=== PATIENT | female | born 1940 | race Caucasian/White ===

== ENCOUNTER 2019-11-05 15:20 | Observation (INO) | payer MEDICARE, SELFPAY ==
[2019-11-05] VITALS (10 sets, daily range): BP systolic 148–173; BP diastolic 45–78; PULSE 77–107; RESP 7–40; TEMP 36.2–36.8; O2SAT 92–100; BMI 26.9
--- NOTE | ~2019-11-05 | CT_ITS ---
EXAMINATION: CTA neck DATE: 11/07/2019 10:12 INDICATION: Carotid stenosis. TECHNIQUE: Computed tomographic angiography (CTA) of the neck was performed with 100 mL Omnipaque-350 intravenous contrast. Automated exposure control and iterative reconstruction technique were employe d. The dose-length product was 504.98 mGy-cm. Maximum intensity projection 3D-reconstructions were cr eated by the technologist on a separate workstation. COMPARISON: Ultrasound 11/06/2019 FINDINGS: There is mild scarring at the lung apices. There are no pathologically enlarged lymph nodes . There is no significant stenosis of the vertebral arteries, which are codominant. There is plaque i n the proximal internal carotid arteries and carotid bifurcations. There is 62% stenosis of the proxi mal right internal carotid artery relative to normal distal artery lumen diameter (NASCET criteria). There is 60% stenosis of the proximal left internal carotid artery relative to normal distal artery l umen diameter. There is severe cervical spondylosis. There are bilateral mastoid effusions. IMPRESSION: 1. 62% stenosis of the proximal right internal carotid artery relative to normal distal artery lumen diameter (NASCET criteria). 2. 60% stenosis of the proximal left internal carotid artery relative to normal distal artery lumen d iameter. Reviewed, dictated and finalized at location A. ENTIONAL MACHINIST IMPRESSION: 1. 62% stenosis of the proximal right internal carotid artery relative to goran l distal artery lumen diameter (NASCET criteria). 2. 60% stenosis of the proximal left internal carotid artery relative to normal distal artery lumen diameter.
--- NOTE | ~2019-11-05 | CT_ITS ---
EXAMINATION: CT brain wo con EXAM DATE: 11/05/2019 16:28 INDICATION: Syncope. TECHNIQUE: Spiral CT of the head was performed without contrast. Axial, coronal and sagittal images were reviewed. The dose-length product (DLP) for this examination was 605.33 mGy-cm. The exposure w as tailored according to patient size, and iterative reconstruction (ASIR) was used as additional dos e reduction technique. Comparison is made to prior examination from 05/18/2019. FINDINGS: There is no acute intraparenchymal hemorrhage. No evidence of intraparenchymal brain mass lesion. No evidence of acute infarction. Please note that initial head CT has limited sensitivity f or small or acute infarctions. There is mild to moderate periventricular and subcortical hypodensity, nonspecific but probably related to small vessel ischemic disease. There is mild to moderate promi nence of the sulci and ventricles related to cerebral atrophy. There is intracranial carotid arteri osclerosis. There are no extra-axial collections. There is no mass effect or midline shift. The or bits are unremarkable. Soft tissue is unremarkable. The visualized sinuses and mastoid air cells ar e well aerated. IMPRESSION: 1. No acute intracranial findings. 2. Chronic age related findings. Reviewed, dictated and finalized at location B. ER FIRST CLASS
--- NOTE | ~2019-11-05 | XR_ITS ---
EXAMINATION: XR chest 1V portable INDICATION: Chest pain TECHNIQUE: Portable AP chest at 1630 hours COMPARISON: 05/18/2019 FINDINGS: The lungs are free of acute opacities. There is no pleural effusion or pneumothorax. The ca rdiomediastinal silhouette is normal. The visualized bones and soft tissues are unremarkable. IMPRESSION: 1. No acute cardiopulmonary abnormality. Reviewed, dictated and finalized at location A. ALL CONTRACTOR
--- NOTE | ~2019-11-05 | US_ITS ---
EXAMINATION: US carotid duplex BI DATE: 11/06/2019 12:21 INDICATION: Syncope TECHNIQUE: Grayscale, color Doppler, and pulsed Doppler images of the cervical carotid arteries were obtained. The degree of vessel stenosis is placed in one of the following categories: normal, <50%, 5 0-69%, >=70% but less than near-occlusion, near-occlusion, or total occlusion. Note that percent sten osis relative to normal distal artery lumen diameter is indirectly measured from velocity measurement s as described by Haroldo, et al. Radiology 2003; 229:340-346. COMPARISON: None. FINDINGS: RIGHT: The right common carotid artery (CCA) peak systolic velocity (PSV) is 124 cm/s. The right internal ca rotid artery (ICA) PSV is 205 cm/s. The right ICA end-diastolic velocity (EDV) is 15 cm/s. The right ICA/CCA PSV ratio is 1.7. Grayscale and color Doppler images yield an estimate of 50-69% diameter red uction from plaque in the ICA. The external carotid artery (ECA) PSV is 184 cm/s. There is antegrade flow in the right vertebral artery. LEFT: The left CCA PSV is 72 cm/s. The left ICA PSV is 321 cm/s. The left ICA EDV is 44 cm/s. The left ICA/ CCA PSV ratio is 4.5. Grayscale and color Doppler images yield an estimate of >=70% (but less than ne ar occlusion) diameter reduction from irregular friable appearing plaque in the proximal most ICA. Th e ECA PSV is 123 cm/s. There is antegrade flow in the left vertebral artery. IMPRESSION: 1. 50-69% stenosis in the right internal carotid artery. 2. >=70% (but less than near occlusion) stenosis in the left internal carotid artery. Reviewed, dictated and finalized at location A. HELPER PRESERVES IMPRESSION: 1. 50-69% stenosis in the right internal carotid artery. 2. >=70% (but less than near occlusion) stenosis in the left internal carotid a rtery.
--- NOTE | 2019-11-05 16:12 | ECG_ITS ---
Measurements Intervals [place] Rate: 71 P: 47 VA: 204 QRS: 11 QRSD: 72 T: 42 QT: 375 QTc: 410 Interpretive Statements SINUS RHYTHM BORDERLINE AV CONDUCTION DELAY LOW QRS VOLTAGE IN PRECORDIAL LEADS BORDERLINE ECG Electronically Signed On 11-05-2019 20:38:22 TIE MILL OPERATOR by Ulysses Canales D.O.
--- NOTE | 2019-11-05 16:13 | ED.SYNCOPE ---
HPI - Syncope General Chief Complaint: Syncope Stated Complaint: NEAR SYNCOPE Time Seen by Provider: 11/05/19 16:08 Source: patient, family and RN notes reviewed Mode of arrival: ambulatory Limitations: no limitations History of Present Illness HPI narrative: Pt is a 79 y/o female who presents to the ED with c/o a syncopal episode which occurred around 1430 this afternoon. Pt's son states he was getting the pt into the shower and the pt experienced the syncopal episode while in the shower. He states the pt had to be helped out of the shower because she was unconscious. He reports performing CPR for approximately 1 minute before the pt gained consciousness again. He denies checking for a pulse before he started CPR. The pt reports mild diffuse chest pain due to the chest compressions from CPR and increased fatigue, but denies a headache, nausea, vomiting, or ABD pain. She denies having a similar episode to this in the past. However, she was at the hospital last week and was admitted, but is unsure to the reason why. MD complaint: loss of consciousness Onset (ago): hour(s) (1430 this afternoon) Duration of episode: 1 -: minutes(s) Description of event: CPR performed Prodromal symptoms: none Witnessed: Yes - by Bystander (by family) Context: other (in the shower) Injuries sustained associated with event: none Current symptoms: chest pain (due to chest compressions) and other (increased fatigue) Related Data Home Medications Medication Instructions Recorded Confirmed amlodipine 5 mg PO DAILY 11/05/19 11/05/19 atorvastatin 40 mg PO DAILY 11/05/19 11/05/19 carbamazepine 200 mg PO Q12H 11/05/19 11/05/19 clopidogrel 75 mg PO DAILY 11/05/19 11/05/19 hydrocodone-acetaminophen [[place]] 1 tablet PO Q6H PRN 11/05/19 11/05/19 hydroxyzine HCl 25 mg PO BID PRN 11/05/19 11/05/19 lisinopril 20 mg PO DAILY 11/05/19 11/05/19 memantine 10 mg PO BID 11/05/19 11/05/19 pantoprazole 40 mg PO DAILY 11/05/19 11/05/19 Allergies Allergy/AdvReac Type Severity Reaction Status Date / Time Penicillins Allergy Intermediate ITCHING, Verified 11/05/19 15:50 BURNING BEHIND EARS Review of Systems Constitutional: Constitutional: Reports fatigue (increased) and Denies headache(s) ENT: Denies headache(s) Cardiovascular: Cardiovascular: Reports chest pain (mild diffuse chest pain due to chest compressions) Gastrointestinal: Gastrointestinal: Denies abdominal pain, Denies nausea and Denies vomiting Neurologic: Reports syncope (syncopal episode that lasted approximately 1 minute) and Denies headache(s) [facility] Past Medical History Medical History (Updated 11/05/19 @ 19:27 by Adriana Reid MD) Anxiety Arthritis CAD (coronary atherosclerotic disease) Colon tumor Depression Diabetes Hypercholesterolemia Hypertension Osteoporosis Pneumonia Rectal polyp Shingles Surgical History Surgical History (Updated 11/05/19 @ 16:21 by Kassy Tamayo) H/O Spinal surgery H/O vascular surgery History of colon surgery Social History Social History (Updated 11/05/19 @ 16:21 by Kassy Tamayo) Smoking status: Former smoker Alcohol intake: never Substance use: never Substance use type: does not use Gender identity (if verbalized by the patient): Female Spiritual care concerns: No Agree to blood products: Yes Exam Const: General: no acute distress and well developed Orientation/consciousness: oriented to person, oriented to place, oriented to time and patient oriented x3 HENMT: Head: normocephalic Ears: external ears normal General nose exam: Normal external nose present Eyes: General: appearance normal, both eyes and all related structures Conjunctivae: conjunctivae normal Neck: Neck: normal visual inspection and full ROM Chest: Chest palpation & inspection: normal inspection of the chest and no tenderness Resp: Effort & Inspection: normal respiratory effort Auscultation: clear to auscultation bilaterally Cardio: Rate:
[2019-11-05] MEDS: SODIUM CHLORIDE 0.9% IV 1,000 ML 999 ML IV CONT (16:36)
[2019-11-05 17:00] LABS: Basophils Absolute Auto 0.1 K/mm3 (0.0-0.1); Basophils Percent Auto 0.3 % (0.2-1.2); Eosinophils Absolute Auto 0.1 K/mm3 (0-0.3); Eosinophils Percent Auto 0.5 % (0-4.4); Hematocrit 39.2 % (37.0-47.0); Hemoglobin 12.8 g/dL (12.0-15.0); Immature Granulocyte Absolute 0.19 K/mm3 (0.00-0.031); Immature Granulocyte Percent A 1.1 % (0-0.5); Lymphocytes Absolute Auto 1.32 K/mm3 (0.9-3.2); Lymphocytes Percent Auto 7.8 % (18.3-44.2); Mean Corpuscular HGB Conc 32.7 g/dl (32-36); Mean Corpuscular Hemoglobin 30.9 pg (26-34); Mean Corpuscular Volume 94.7 fl (80-100); Monocytes Absolute Auto 0.9 K/mm3 (0.1-0.6); Monocytes Percent Auto 5.4 % (2.6-8.5); Neutrophils Absolute Auto 14.4 K/mm3 (1.3-6.7); Neutrophils Percent Auto 84.9 % (45.5-73.1); Platelet Count Result 254 k/mm3 (150-375); Red Blood Count 4.14 M/mm3 (4.2-5.4); Red Cell Distribution Width 12.9 % (11.5-14.5)
[2019-11-05 17:14] LABS: Alanine Aminotransferase 24 U/L (4-35); Albumin Level 3.6 g/dL (3.5-5.1); Alkaline Phosphatase 94 U/L (38-126); Aspartate Amino Transferase 29 U/L (14-36); Bilirubin,Total 0.5 mg/dL (0.2-1.3); Blood Urea Nitrogen 12 mg/dL (7-17); Calcium 8.7 mg/dL (8.4-10.2); Carbon Dioxide 21 mmol/L (22-30); Chloride 100 mmol/L (98-107); Estimated CRCL calculation 95 ml/min; Estimated Glomerular Filt Rate > 60; Glucose 118 mg/dL (65-105); Sodium 135 mmol/L (137-145)
[2019-11-05 17:55] LABS: Troponin I < 0.012 ng/mL (0.000-0.034)
[2019-11-05 18:53] LABS: Add Urine Microscopic? YES; Appearance Urine Clear (Clear); Bilirubin Urine Negative (Negative); Blood Urine Negative (Negative); Color Urine Yellow (Yellow); Glucose Urine UA Negative (Negative); Ketones Urine Negative (Negative); Leukocyte Esterase Ur Negative LEU/UL (Negative); Mucus Urine Few /lpf; Nitrate Urine Negative (Negative); Protein Urine 1+ mg/dL (Negative); Specific Grav Ur 1.026 (1.001-1.035); Squamous Epithelial Cell Urine Rare /hpf (Few); WBC Urine 0-3 /hpf
--- NOTE | 2019-11-05 19:28 | ADMGEN ---
This patient, Carolin Pedersen, was admitted to IMU Room 200-01. Patient/family oriented to hospital policies and general routines including ID bracelet, bed and alarms, visiting hours, pain management, procedures, bathroom and other care routines, personal items, smoking policy, room service/diet, and visiting hours. Valuables list has been completed. Information on how to activate the Rapid Response Team has been discussed. Patient/Family are encouraged to report perceived risks to care and to ask questions if they do not understand what they are told or what they should do.
[2019-11-05 21:04] LABS: Troponin I < 0.012 ng/mL (0.000-0.034)
[2019-11-05 23:50] LABS: Troponin I < 0.012 ng/mL (0.000-0.034)
[2019-11-06] VITALS (15 sets, daily range): BP systolic 149–183; BP diastolic 50–97; PULSE 64–98; RESP 18–22; TEMP 36.5–36.9; O2SAT 94–100
--- NOTE | 2019-11-06 | ECHO_ITS ---
Patient Info Name: Carolin Pedersen Age: 79 years : 1940 Gender: Female Ht: 64 in Wt: 156 lbs BSA: 1.80 m2 HR: 75 bpm BP: 183 / 86 mmHg Heart Rhythm: Sinus Rhythm Technical Quality: Fair Exam Date: 11/06/2019 1:37 PM Exam Location: [facility] Patient Status: Outpatient Admit Date: 11/05/2019 Staff Ordering Physician: Violeta Cronin NP Scissors Sharpener: Candace Wakefield RDCS Attending Provider: Hortensia Rubalcava MD Referring Physician: Mehrdad SHIELDS; Exam Type: CA echo doppler color flow Study Info Indications - syncope Complete two-dimensional, color flow and Doppler transthoracic echocardiogram is performed. Summary 1. Left ventricular systolic function is hyperdynamic, estimated at >70%. 2. There is no increased left ventricular wall thickness. 3. The left ventricular diastolic function is grade I diastolic dysfunction. 4. There is trace mitral valve regurgitation. 5. The mitral valve annulus is mildly calcified. 6. There is no aortic valve stenosis. 7. There is mild tricuspid valve regurgitation. 8. Mild pulmonary hypertension, estimated pulmonary arterial systolic pressure is 36 mmHg. 9. Mild calcification of the aortic root. 10. There is moderate aortic atherosclerosis. Left Ventricle Left ventricular chamber dimension is normal. Left ventricular systolic function is hyperdynamic, estimated at >70%. There is no increased left ventricular wall thickness. The left ventricular diastolic function is grade I diastolic dysfunction. Right Ventricle Right ventricular chamber dimension is normal. Right ventricular systolic function is normal. Left Atria Left atrial chamber dimension is normal. Right Atria Right atrial chamber dimension is normal. Aortic Valve The aortic valve is trileaflet. There is mild aortic valve sclerosis. There is no aortic valve stenosis. There is no aortic valve regurgitation. Pulmonic Valve The pulmonic valve is not well visualized. There is trace pulmonic regurgitation. Mitral Valve The mitral valve has normal leaflets. There is trace mitral valve regurgitation. The mitral valve annulus is mildly calcified. Tricuspid Valve The tricuspid valve leaflets are normal. There is mild tricuspid valve regurgitation. Mild pulmonary hypertension, estimated pulmonary arterial systolic pressure is 36 mmHg. Pericardium/Pleural The pericardium appears epicardial fat pad. There is no pericardial effusion. Inferior Vena Cava Normal inferior vena cava with >50% collapse upon inspiration consistent with normal right atrial pressure, 5 mmHg. Aorta The aortic root size at the sinus of Valsalva is normal. There is moderate aortic atherosclerosis. Mild calcification of the aortic root. Left Ventricular Outflow Tract Name Value Normal LVOT 2D LVOT Diameter 2.0 cm LVOT Doppler LVOT Peak Gradient 4 mmHg LVOT Mean Gradient 3 mmHg LVOT VTI 24 cm LVOT VTI/AV VTI Ratio 0.7 LVOT Stroke Volume
--- NOTE | 2019-11-06 01:14 | PM.IMHP ---
H&P: HPI History of Present Illness Chief complaint: syncope Narrative: Carolin Pedersen is a 79 year old female came to the emergency room with complaints of syncopal episode. The patient lives with her son and her son stated that the patient passed out in the shower. He did not check her pulse but continued with CPR for approximately 1 minute when she regained consciousness. The patient tells me that she has been through this in the past and she had an echo about 3 months ago however cannot find any history of an echo here. The patient had some chest pain from the CPR. But no fever no chills. She said she did not take any pain medication prior to getting into the shower. She said that she did not feel lightheaded or dizzy prior to this. She had no chest pain prior to getting in the shower. Date of service 11/06/2019. Patient was given IV fluids and pain medication in the emergency room. Review of Systems Review of Systems: All systems reviewed & are unremarkable except as noted in HPI and below Constitutional: Constitutional: Reports as per HPI and Reports no additional constitutional complaints Eyes: Eyes: Reports as per HPI and Reports no additional eye complaints ENT: Reports system reviewed and no additional complaints, except as documented and Reports Normal hearing present Cardiovascular: Cardiovascular: Reports no additional cardiovascular complaints Respiratory: Respiratory: Reports no additional respiratory complaints and Reports no additional respiratory complaints Gastrointestinal: Gastrointestinal: Reports as per HPI and Reports no additional gastrointestinal complaints Genitourinary: Genitourinary: Reports no additional female genitourinary complaints Musculoskeletal: Musculoskeletal: Reports no additional musculoskeletal complaints Integumentary/Breasts: Skin/Breast: Reports system reviewed and no additional complaints, except as docu and Reports as per HPI Neurologic: Reports system reviewed and no additional complaints, except as documented, Reports as per HPI and Reports Normal hearing present Psychiatric: Psychiatric: Reports no additional psychiatric complaints and Reports as per HPI Comments: Patient denies any dementia Endocrine: Endocrine: Reports no additional endocrine complaints Comments: She stated that she is borderline diabetic Hematologic/Lymphatic: Hematologic/Lymphatic: Reports no additional hematologic/lymphatic complaints Allergic/Immunologic: Allergic/Immunologic: Reports no additional allergic/immunologic complaints [facility] Past Medical History Medical History (Updated 11/06/19 @ 01:28 by Violeta Cronin NP) Anxiety Arthritis CAD (coronary atherosclerotic disease) Carotid artery disease Chronic back pain Colon tumor Dementia Depression Diabetes Hypercholesterolemia Hypertension Osteoporosis Peripheral artery disease Pneumonia Rectal polyp Shingles Surgical History Surgical History (Updated 11/06/19 @ 01:21 by Violeta Cronin NP) H/O Spinal surgery H/O vascular surgery History of colon surgery Hx of rectal polypectomy Status post surgical removal of neoplasm of skin Right lower leg Family History Family History (Updated 11/06/19 @ 01:22 by Violeta Cronin NP) Father Hypertension Throat cancer Mother Hypertension Sibling Breast cancer Other Diabetes mellitus Social History Social History (Updated 11/06/19 @ 01:23 by Violeta Cronin NP) Social History: She stated that she is and she has 3 children. She lives with 2 sons. She tells me neither son are her durable power district attorney. She is a full code. She is to smoke and she quit about 10 years ago she stated. No alcohol or illicit drugs. 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 Smoking status: Former smoker Alcohol intake: never Substance use: never Substance use type: does not use Living arrangements: with family Occupation/Education: retired G
[2019-11-06 05:01] LABS: Basophils Percent Auto 0.3 % (0.2-1.2); Eosinophils Absolute Auto 0.2 K/mm3 (0-0.3); Eosinophils Percent Auto 1.6 % (0-4.4); Hematocrit 36.6 % (37.0-47.0); Hemoglobin 11.9 g/dL (12.0-15.0); Immature Granulocyte Absolute 0.06 K/mm3 (0.00-0.031); Immature Granulocyte Percent A 0.5 % (0-0.5); Lymphocytes Absolute Auto 2.03 K/mm3 (0.9-3.2); Lymphocytes Percent Auto 18.5 % (18.3-44.2); Mean Corpuscular HGB Conc 32.5 g/dl (32-36); Mean Corpuscular Volume 95.3 fl (80-100); Mean Platelet Volume 9.4 fl (7.4-10.4); Monocytes Absolute Auto 0.9 K/mm3 (0.1-0.6); Monocytes Percent Auto 7.8 % (2.6-8.5); Neutrophils Absolute Auto 7.8 K/mm3 (1.3-6.7); Neutrophils Percent Auto 71.3 % (45.5-73.1); Platelet Count Result 236 k/mm3 (150-375); Red Blood Count 3.84 M/mm3 (4.2-5.4)
[2019-11-06 05:16] LABS: Alanine Aminotransferase 22 U/L (4-35); Albumin Level 3.1 g/dL (3.5-5.1); Alkaline Phosphatase 85 U/L (38-126); Aspartate Amino Transferase 23 U/L (14-36); Bilirubin,Total 0.3 mg/dL (0.2-1.3); Blood Urea Nitrogen 8 mg/dL (7-17); Calcium 8.5 mg/dL (8.4-10.2); Carbon Dioxide 26 mmol/L (22-30); Chloride 104 mmol/L (98-107); Estimated CRCL calculation 76 ml/min; Estimated Glomerular Filt Rate > 60; Glucose 101 mg/dL (65-105); Magnesium 1.7 mg/dL (1.6-2.3); Potassium 3.6 mmol/L (3.4-5.0); Sodium 136 mmol/L (137-145)
[2019-11-06] MEDS: CLOPIDOGREL BISULFATE 75 MG TABLET PO (09:26)
[2019-11-06] MEDS: carBAMazepine 200 MG TABLET PO ×2 (09:26→21:34)
[2019-11-06] MEDS: AMLODIPINE BESYLATE 5 MG TABLET PO (09:26)
[2019-11-06] MEDS: lisinopriL 20 MG TABLET PO (09:27)
[2019-11-06] MEDS: ATORVASTATIN 40 MG TABLET PO (09:27)
[2019-11-06] MEDS: MEMANTINE 10 MG TABLET PO ×2 (09:27→17:10)
[2019-11-06] MEDS: PANTOPRAZOLE 40 MG TABLET PO (09:27)
--- NOTE | 2019-11-06 16:30 | PM.IMPN ---
Progress Note: A&P Assessment and Plan (1) Syncope: Qualifiers: Syncope type: unspecified Qualified Code(s): R55 - Syncope and collapse Code(s): R55 - Syncope and collapse Status: Acute Assessment and Plan: This occurred while the patient was taking a shower. She date complain of feeling hot prior to the episode and felt nauseated. The son performed CPR but did not check a pulse prior to doing CPR. Patient has a history of carotid artery disease and is on Plavix. Carotid ultrasound today showed possible subtotal occlusion on the left so will proceed with CT. (2) Hypertension: Code(s): I10 - Essential (primary) hypertension Status: Chronic Assessment and Plan: Continue with lisinopril. Continue with Norvasc. (3) Hypercholesterolemia: Code(s): E78.00 - Pure hypercholesterolemia, unspecified Status: Chronic Assessment and Plan: Continue with Lipitor. (4) Depression: Code(s): F32.9 - Major depressive disorder, single episode, unspecified Status: Chronic Assessment and Plan: I am not sure if this is why she is on the Tegretol. But the patient denies any seizures. (5) Dementia: Code(s): F03.90 - Unspecified dementia without behavioral disturbance Status: Chronic Assessment and Plan: Patient denies this but is on Namenda. (6) Chronic back pain: Code(s): M54.9 - Dorsalgia, unspecified; G89.29 - Other chronic pain Status: Chronic Assessment and Plan: Continue with patient's [place]. Subjective Date/time seen: 11/06/19 16:30 Interval history: Date of visit 11/06. 79-year-old hypertensive white female with hyperlipidemia admitted with syncopal episode. Son performed CPR and she awoke quickly and there was no documented absent pulse. Feels tired but no other complaints. Usually walks with walker at home Exam Narrative: Exam Narrative: Blood pressure 152/54 pulse is 82 regular sat 98% Pupils equal reactive to light sclera anicteric Neck I hear no bruits CV regular rate rhythm Abdomen is soft nontender Extremities without edema Neuro alert no focal deficits Objective Data Vital Signs Vital Signs: Vital Signs - 24 hr 11/05/19 16:35 11/05/19 18:16 11/05/19 18:33 Temperature Pulse Rate 80 86 88 Respiratory Rate 13 7 L 12 Blood Pressure 148/70 H Pulse Oximetry 92 11/05/19 19:30 11/05/19 20:00 11/05/19 22:00 Temperature 36.7 C Pulse Rate 91 96 94 Respiratory Rate 20 Blood Pressure 173/56 H Pulse Oximetry 99 11/05/19 23:33 11/06/19 00:00 11/06/19 02:00 Temperature 36.8 C Pulse Rate 89 80 72 Respiratory Rate 20 Blood Pressure 157/45 H Pulse Oximetry 97 11/06/19 03:42 11/06/19 04:00 11/06/19 05:58 Temperature 36.9 C Pulse Rate 64 75 76 Respiratory Rate 18 Blood Pressure 176/55 H Pulse Oximetry 94 11/06/19 08:00 11/06/19 08:20 11/06/19 12:00 Temperature 36.9 C 36.8 C Pulse Rate 93 70 83 Respiratory Rate 18 22 H Blood Pressure 183/68 H 152/53 H Pulse Oximetry 98 98 11/06/19 12:30 11/06/19 14:00 Temperature Pulse Rate 86 76 Respiratory Rate Blood Pressure Pulse Oximetry Intake/Output Intake/Output: Intake & Output 11/03/19 11/04/19 11/05/19 11/06/19 23:59 23:59 23:59 23:59 Intake Total 1000 540 Output Total 200 600 Balance 800 -60 Meds/Results Medications: Active Medications Generic Name Dose Route Start Last Admin Trade Name Freq PRN Reason Stop Dose Admin Hydrocodone Bitart/Acetaminophen 1 tab 11/06/19 01:28 11/06/19 13:12 [place] 7.5-325 Mg PO 1 tab Q6H PRN Administration Pain Amlodipine Besylate 5 mg 11/06/19 09:00 11/06/19 09:26 Norvasc PO 5 mg DAILY SOFIA Administration Atorvastatin Calcium 40 mg 11/06/19 09:00 11/06/19 09:27 Lipitor PO 40 mg DAILY SOFIA Administration Carbamazepine 200 mg 11/06/19 09:00 11/06/19 09:26 Tegretol PO 200
--- NOTE | 2019-11-06 17:59 | PC.NURSE ---
STATUS CHANGED TO MED/TELE ORDERED
[2019-11-06] MEDS: ENOXAPARIN 40 MG/0.4 ML SYRINGE SUB-Q (21:34)
[2019-11-07] VITALS: PULSE 75
[2019-11-07 03:52] VITALS: BP 156/65; PULSE 83; RESP 20; TEMP 36.7; O2SAT 97
[2019-11-07 04:00] VITALS: PULSE 102
[2019-11-07 08:00] VITALS: BP 175/64; PULSE 83; PULSE 85; RESP 18; TEMP 36.6; O2SAT 98
[2019-11-07] MEDS: ATORVASTATIN 40 MG TABLET PO (08:18)
[2019-11-07] MEDS: MEMANTINE 10 MG TABLET PO (08:18)
[2019-11-07] MEDS: PANTOPRAZOLE 40 MG TABLET PO (08:18)
[2019-11-07] MEDS: lisinopriL 20 MG TABLET PO (08:18)
[2019-11-07] MEDS: AMLODIPINE BESYLATE 5 MG TABLET PO (08:18)
[2019-11-07] MEDS: CLOPIDOGREL BISULFATE 75 MG TABLET PO (08:18)
[2019-11-07] MEDS: carBAMazepine 200 MG TABLET PO (08:47)
--- NOTE | 2019-11-07 08:51 | PCOTNOTE ---
Pt refused skilled OT this am 2/2 c/o in too much pain. Checked with nursing. Nurse stated she gave pt a pain pill.
[2019-11-07 11:05] VITALS: BP 178/63; PULSE 80; RESP 22; TEMP 36.6; O2SAT 10
[2019-11-09 11:31] LABS: Carbamazepine Tegretol 8.3 mcg/mL (4.0-12.0)
--- NOTE | 2019-11-09 16:39 | PM.DS ---
DS: Diagnosis Admitting Diagnosis Admitting Diagnosis: Syncope and collapse Discharge Diagnosis (1) Syncope: Qualifiers: Syncope type: unspecified Qualified Code(s): R55 - Syncope and collapse Code(s): R55 - Syncope and collapse Status: Acute Assessment and Plan: This occurred while the patient was taking a shower. She did complain of feeling hot prior to the episode and felt nauseated. The son performed CPR but did not check a pulse prior to doing CPR. Patient has a history of carotid artery disease and is on Plavix. Carotid ultrasound 11/04 showed possible subtotal occlusion on the left but CT angiogram revealed 62% left internal artery occlusion and 60% right. Echocardiogram was normal. No arrhythmias noted while here. Suspect she had vaso vagal syncope but she will follow up with her primary and determine whether they think long-term monitor would be in order to rule out arrhythmia. (2) Hypertension: Code(s): I10 - Essential (primary) hypertension Status: Chronic Assessment and Plan: Continue with lisinopril. Continue with Norvasc. Pressure only fairly controlled (3) Hypercholesterolemia: Code(s): E78.00 - Pure hypercholesterolemia, unspecified Status: Chronic Assessment and Plan: Continue with Lipitor. (4) Depression: Code(s): F32.9 - Major depressive disorder, single episode, unspecified Status: Chronic Assessment and Plan: I am not sure if this is why she is on the Tegretol. But the patient denies any seizures. (5) Dementia: Code(s): F03.90 - Unspecified dementia without behavioral disturbance Status: Chronic Assessment and Plan: Patient denies this but is on Namenda. (6) Chronic back pain: Code(s): M54.9 - Dorsalgia, unspecified; G89.29 - Other chronic pain Status: Chronic Assessment and Plan: Continue with patient's [place]. DS: Summary Hospital Course Hospital Course: 79-year-old hypertensive white female with known carotid disease apparently was feeling more min nauseated when callus shower and had a syncopal episode. Son immediately started CPR without checking him pulse and she quickly regained consciousness for complaining of sore chest. Evaluation here was unremarkable including CT of the brain, carotid evaluation with CT angio showing 6 approximately 60% bilaterally and normal echocardiogram. Patient will continue her usual medication follow with her primary care to determine whether long-term cardiac monitoring would be needed Time Spent with Patient Time attestation: Total time spent providing and/or coordinating discharge services: 35 minutes Exam Narrative: Exam Narrative: Condition on discharge Blood pressure 170/64 pulse is 80 regular Lungs clear CV regular rate rhythm Abdomen soft nontender Extremities without edema She was walking with physical therapy and her walker take a diet well Discharge home with under the care for family and follow-up with primary care DS: Data Data Completed and Pending Labs on day of discharge: Labs from last 24 hours 11/06/19 04:17 Carbamazepine 8.3 Discharge Plan Discharge Attending physician on discharge: Justin Todd Discharging Clinician: Justin Todd Patient Disposition: Home, Self-Care Activity: as tolerated Diet: low sodium Patient Instructions: Pain Management (DC) Stand Alone Forms: General Discharge Information Follow-up/Referrals: Alex,Dillon Greenberg MD [Primary Care Provider] - 2 Weeks Discharge Medications: Continued atorvastatin 40 mg tablet 40 mg PO DAILY RF: 0 lisinopril 20 mg tablet 20 mg PO DAILY RF: 0 amlodipine 5 mg tablet 5 mg PO DAILY RF: 0 pantoprazole 40 mg tablet,delayed release (DR/EC) 40 mg PO DAILY RF: 0 hydroxyzine HCl 25 mg tablet 25 mg PO BID PRN (Reason: Itching) RF: 0 memantine 10 mg tablet 10 mg PO BID R
== END 2019-11-07 12:15 | disposition home or self-care (01) ==
LOC: ANHED 16:08 → ANHIMU 19:27
PROVIDERS: Nurse Practitioner; Admitting Provider Hospitalist; Emergency Provider Emergency Medicine; PCP Internal Medicine; Visit Provider Internal Medicine
DX: R55 Syncope and collapse (principal); I65.23 Occlusion and stenosis of bilateral carotid arteries; Z79.02 Long term (current) use of antithrombotics/antiplatelets; I10 Essential (primary) hypertension; E78.00 Pure hypercholesterolemia, unspecified; F32.9 Major depressive disorder, single episode, unspecified; F03.90 Unspecified dementia, unspecified severity, without behavioral disturbance, psychotic disturbance, mood disturbance, and anxiety; M54.9 Dorsalgia, unspecified; G89.29 Other chronic pain; D72.829 Elevated white blood cell count, unspecified; Z79.899 Other long term (current) drug therapy; Z87.891 Personal history of nicotine dependence; Z88.0 Allergy status to penicillin
CPT/HCPCS: 36415; 51701; 70450; 70498; 71045; 80053; 80156; 81001; 83735; 84443; 84484; 85025; 93005; 93306; 93880; 96360; 96361; 96372; 97161; 97165; 99285; A9270; G0378; J1650; J7030; Q9967

== ENCOUNTER 2020-02-09 16:44 | Inpatient (IN) | payer MEDICARE, SELFPAY ==
[2020-02-09] VITALS (10 sets, daily range): BP systolic 119–154; BP diastolic 53–76; PULSE 72–94; RESP 18–20; TEMP 36.5–36.6; O2SAT 96–100; BMI 25.5
--- NOTE | ~2020-02-09 | XR_ITS ---
EXAMINATION: XR surgery orthopedic DATE: 02/13/2020 13:36 INDICATION: ORIF right ankle fracture TECHNIQUE: 2 fluoroscopic spot images of the right ankle were obtained in frontal and lateral project ions during procedure performed by Dr. Billy. Radiologist was not present for the imaging or procedure . The amount of fluoroscopy time used during this procedure was 0.7 minutes. COMPARISON: 02/10/2020 FINDINGS: Interval reduction of the previous noted right ankle fracture subluxation. The lateral malleolar frac tures fixed with a lateral plate and screws and is in near-anatomic alignment. The medial malleolus f racture remains unfixed has been reduced to near-anatomic alignment with a couple millimeter residual distraction. There is increased density projecting over the lateral aspect of the tibial plafond and there appears be some depression of the lateral aspect of the articular surface suggesting a mildly impacted, nondisplaced posterior malleolar fracture which is also without internal fixation. IMPRESSION: 1. Near-anatomic alignment post open reduction internal fixation of a trimalleolar fracture of the di stal right tibia and fibula. Reviewed, dictated and finalized at location A. IMPRESSION: 1. Near-anatomic alignment post open reduction internal fixation of a trimalleo lar fracture of the distal right tibia and fibula.
--- NOTE | ~2020-02-09 | XR_ITS ---
EXAMINATION: XR thoracic spine 3V EXAM DATE: 02/16/2020 15:50 INDICATION: Mid to low back pain, several recent falls. TECHNIQUE: Frontal and lateral projections of the thoracic spine as well as lateral swimmers projecti on of the upper thoracic spine for interpretation. There is no prior study for comparison. FINDINGS: There are no acute fractures identified. The vertebral bodies are aligned in the AP dimensi on. Vertebral body and disc heights are well-maintained. There is mild mid and lower thoracic disc di sease. Paraspinal soft tissue is unremarkable. Linear left basilar opacity likely subsegmental atelec tasis. IMPRESSION: Mild thoracic spondylosis. Reviewed, dictated and finalized at location A. IMPRESSION: Mild thoracic spondylosis.
--- NOTE | ~2020-02-09 | XR_ITS ---
EXAMINATION: XR lumbar spine 2-3V EXAM DATE: 02/16/2020 15:50 INDICATION: Low back pain, several recent falls. TECHNIQUE: Lumber spine frontal, lateral, lateral L5-S1 projections for interpretation. Comparison is made to prior examination from 10/09/2013. FINDINGS: Vertebral body heights are maintained. There is mild to moderate lumbar disc disease. Grade 1 anterol isthesis L4 on L5 with advanced lower lumbar facet arthropathy. Scattered aortic arteriosclerotic dis ease. No spondylolysis. Sacrum, sacroiliac joints, sacral arcuate lines are intact. Mild to moderate lumbar levoscoliosis. IMPRESSION: 1. No acute fracture line identified. 2. Mild to moderate mild to moderate disc disease levoscoliosis. 3. Advanced lower lumbar facet arthropathy. Reviewed, dictated and finalized at location A.
--- NOTE | ~2020-02-09 | XR_ITS ---
EXAMINATION: XR ankle RT min 3V DATE: 02/10/2020 11:07 INDICATION: Right ankle pain, swelling and limited range of motion post fall TECHNIQUE: Anteroposterior, oblique, mortise, and lateral views of the right ankle were obtained. COMPARISON: None. FINDINGS: Diffuse osteopenia. There is an oblique fracture through the distal fibula with a fracture plane exit ing medially at the level of the tibiotalar joint. There is also a transverse fracture across the med ial malleolus at the level of the tibial plafond. Both fractures demonstrate mild comminution. Both m alleolar fragments as well as intervening talar dome are displaced approximately 1 cm laterally and t here is approximately 15 degrees lateral angulation. No other fracture identified. There is mild sof t tissue swelling about the ankle. Joint spaces appear relatively preserved. Small plantar calcaneal spur. IMPRESSION: 1. Comminuted medial and lateral malleolar fractures with Baldwin type B2 injury pattern. 2. Prominent diffuse osteopenia. Reviewed, dictated and finalized at location A.
--- NOTE | 2020-02-09 16:54 | ECG_ITS ---
Measurements Intervals [place] Rate: 72 P: 50 MN: 188 QRS: 5 QRSD: 78 T: 46 QT: 388 QTc: 426 Interpretive Statements SINUS RHYTHM BORDERLINE T WAVE ABNORMALITY- INFERIOR LEADS BASELINE ARTIFACT- I, II, III, AVR, AVL, AVF BORDERLINE ECG Electronically Signed On 02-10-2020 7:16:19 CDT by Ulysses Canales D.O.
[2020-02-09 17:17] LABS: Basophils Absolute Auto 0.1 K/mm3 (0.0-0.1); Basophils Percent Auto 0.5 % (0.2-1.2); Eosinophils Absolute Auto 0.1 K/mm3 (0-0.3); Eosinophils Percent Auto 1.1 % (0-4.4); Hematocrit 39.1 % (37.0-47.0); Hemoglobin 13.3 g/dL (12.0-15.0); Immature Granulocyte Absolute 0.05 K/mm3 (0.00-0.031); Immature Granulocyte Percent A 0.5 % (0-0.5); Lymphocytes Absolute Auto 1.73 K/mm3 (0.9-3.2); Lymphocytes Percent Auto 15.6 % (18.3-44.2); Mean Corpuscular Hemoglobin 31.8 pg (26-34); Mean Corpuscular Volume 93.5 fl (80-100); Mean Platelet Volume 8.8 fl (7.4-10.4); Monocytes Absolute Auto 0.8 K/mm3 (0.1-0.6); Monocytes Percent Auto 7.1 % (2.6-8.5); Neutrophils Absolute Auto 8.3 K/mm3 (1.3-6.7); Neutrophils Percent Auto 75.2 % (45.5-73.1); Platelet Count Result 238 k/mm3 (150-375); Red Blood Count 4.18 M/mm3 (4.2-5.4); White Blood Count 11.1 K/mm3 (4.5-10.0)
[2020-02-09 17:17] LABS: Add Urine Microscopic? YES; Appearance Urine Clear (Clear); Bacteria Urine Trace /hpf; Bilirubin Urine Negative (Negative); Blood Urine Negative (Negative); Color Urine Yellow (Yellow); Glucose Urine UA Negative (Negative); Ketones Urine Negative (Negative); Leukocyte Esterase Ur Negative LEU/UL (Negative); Mucus Urine Rare /lpf; Nitrate Urine Negative (Negative); Protein Urine Negative (Negative); RBC Urine 0-2 /hpf (0-2); Specific Grav Ur 1.012 (1.001-1.035); WBC Urine 0-3 /hpf
[2020-02-09 17:28] LABS: Blood Urea Nitrogen 5 mg/dL (7-17); Calcium 8.6 mg/dL (8.4-10.2); Carbon Dioxide 21 mmol/L (22-30); Chloride 93 mmol/L (98-107); Estimated Glomerular Filt Rate > 60; Glucose 122 mg/dL (65-105); Potassium 4.1 mmol/L (3.4-5.0); Sodium 125 mmol/L (137-145)
--- NOTE | 2020-02-09 19:55 | ED.SYNCOPE ---
HPI - Syncope General Chief Complaint: Syncope Stated Complaint: syncope Time Seen by Provider: 02/09/20 19:04 History of Present Illness HPI narrative: Patient is a 80-year-old female who presents the ER with weakness and syncope versus near syncope. Patient was on a bedside commode, and when she went to stand she could not and was eased to the ground. Patient reports she does not remember the event. Patient has some history of dementia, she is alert to self/place/year. She has no complaints of pain or fever at this time. She is without cough. There is no visual evidence of trauma to the head or extremities. She reports at baseline she can walk with a walker but has not done so for the last 2 days due to weakness so she has been in a wheelchair. Related Data Home Medications Medication Instructions Recorded Confirmed atorvastatin 40 mg PO DAILY 11/05/19 02/10/20 carbamazepine 200 mg PO TID 11/05/19 02/10/20 clopidogrel 75 mg PO DAILY 11/05/19 02/10/20 hydrocodone-acetaminophen [[place]] 1 tablet PO Q8H PRN 11/05/19 02/10/20 hydroxyzine HCl 25 mg PO BID PRN 11/05/19 02/10/20 lisinopril 20 mg PO DAILY 11/05/19 02/10/20 memantine 10 mg PO BID 11/05/19 02/10/20 pantoprazole 40 mg PO DAILY 11/05/19 02/10/20 bupropion HCl 150 mg PO BID 02/10/20 02/10/20 ferrous sulfate 65 mg PO DAILY 02/10/20 02/10/20 sulfamethoxazole-trimethoprim 1 tablet PO BID 02/10/20 02/10/20 Allergies Allergy/AdvReac Type Severity Reaction Status Date / Time Penicillins Allergy Intermediate ITCHING, Verified 11/05/19 15:50 BURNING BEHIND EARS Review of Systems Review of Systems: All systems reviewed & are unremarkable except as noted in HPI and below Constitutional: Constitutional: Denies chills, Denies fever(s) and Reports weakness ENT: Denies sore throat Cardiovascular: Cardiovascular: Denies chest pain and Denies radiating jaw, neck or arm pain Respiratory: Respiratory: Denies cough and Denies dyspnea Gastrointestinal: Gastrointestinal: Denies abdominal pain, Denies nausea and Denies vomiting [facility] Past Medical History Medical History (Updated 02/10/20 @ 02:56 by Prashant Klein MD) Anxiety Arthritis CAD (coronary atherosclerotic disease) Carotid artery disease Chronic back pain Colon tumor Dementia Depression Diabetes Hypercholesterolemia Hypertension Osteoporosis Peripheral artery disease Pneumonia Rectal polyp Shingles Surgical History Surgical History (Updated 11/06/19 @ 01:21 by Violeta Cronin NP) H/O Spinal surgery H/O vascular surgery History of colon surgery Hx of rectal polypectomy Status post surgical removal of neoplasm of skin Right lower leg Family History Family History (Updated 11/06/19 @ 01:22 by Violeta Cronin NP) Father Hypertension Throat cancer Mother Hypertension Sibling Breast cancer Other Diabetes mellitus Social History Social History (Updated 11/06/19 @ 01:23 by Violeta Cronin NP) Social History: She stated that she is and she has 3 children. She lives with 2 sons. 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 She is a full code. She is to smoke and she quit about 10 years ago she stated. No alcohol or illicit drugs. 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 Smoking status: Former smoker Second hand tobacco smoke exposure: No Alcohol intake: never Substance use: never Substance use type: does not use Gender identity (if verbalized by the patient): Female Spiritual care concerns: No Agree to blood products: Yes Exam Narrative: Exam Narrative: GENERAL: Chronically ill-appearing, well-nourished, and in no acute distress. HEAD: Normocephalic, atraumatic. EYES: PERRL and EOMI. ENT: Mucous membranes moist. CHEST: Clear to auscultation. No respiratory distress. HEART: Regular rate and rhythm. Normal peripheral pulses. ABDOMEN: Soft, nontender, nondistended. EXTREMITIES: Moderate weaknes
--- NOTE | 2020-02-09 22:19 | PC.NURSE ---
spoke with pt son hansa, per pt ok to give updates. updates given.
--- NOTE | 2020-02-09 22:30 | ADMGEN ---
This patient, Carolin Pedersen, was admitted to [facility] Surg Room 306-02. Patient/family oriented to hospital policies and general routines including ID bracelet, bed and alarms, visiting hours, pain management, procedures, bathroom and other care routines, personal items, smoking policy, room service/diet, and visiting hours. Valuables list has been completed. Information on how to activate the Rapid Response Team has been discussed. Patient/Family are encouraged to report perceived risks to care and to ask questions if they do not understand what they are told or what they should do.
[2020-02-09] MEDS: SODIUM CHLORIDE 0.9% IV 1,000 ML 100 ML IV CONT (23:47)
[2020-02-10 04:22] LABS: Add Urine Microscopic? YES; Amorphous Sediment Urine Few; Appearance Urine Cloudy (Clear); Bacteria Urine Trace /hpf; Bilirubin Urine Negative (Negative); Blood Urine Negative (Negative); Color Urine Yellow (Yellow); Glucose Urine UA Negative (Negative); Ketones Urine Negative (Negative); Leukocyte Esterase Ur Negative LEU/UL (Negative); Mucus Urine Rare /lpf; Nitrate Urine Negative (Negative); Protein Urine Negative (Negative); RBC Urine 0-2 /hpf (0-2); Specific Grav Ur 1.008 (1.001-1.035); Squamous Epithelial Cell Urine Occasional /hpf (Few); Urobilinogen Urine Negative mg/dL (<2.0); WBC Urine 0-3 /hpf
[2020-02-10 06:00] VITALS: BP 144/70; PULSE 74; RESP 20; TEMP 37; O2SAT 99
--- NOTE | 2020-02-10 06:22 | PM.IMHP ---
H&P: HPI History of Present Illness Chief complaint: Passing out while on the commode Narrative: Date and time of patient contact: 02/10/2020 at 2:10 a.m. Carolin Pedersen is a 80 year old female with a past medical history of dementia, hypertension, prior episodes of hyponatremia, and prior hospitalizations for syncope with extensive workup thought to be due to vasovagal syncope who presented to the ER via EMS after having syncopal episode while on the commode. EMS reported that the patient had a diarrheal stool in the bowl of the commode on their arrival to the house. The patient realizes that she is in [facility] but she is adamant that she did not have diarrhea and that she has not had a bowel movement for 4 days. The patient is intermittently confused consistent with her history of dementia. She is alert and oriented times 3 at the time of my evaluation but had only been alert and oriented x2 when the nurse had been in the room about 20 minutes prior to my arrival. Nursing staff reports to me that the patient but has been on the bedpan pretty much since arrival to the floor. She is requesting the bedpan approximately every 10 minutes if staff removed her from the bedpan. On exam the patient's bladder was palpable almost to the umbilicus. Bladder scan demonstrated over 800 mL of urine. Julio catheter was placed in the patient had immediate return of pale clear yellow urine. The patient denies any abdominal pain in just states that she feels like she has to pee if the her bladder is palpated. She denies being on antibiotics for urinary tract infection but review external med history and her son's report to ER staff contradicts this. The patient has been on Bactrim for 4 days to treat a UTI. Her urine in the ER was unremarkable and she is currently afebrile. She denies any nausea or vomiting but has a poor appetite. She denied any chest pain or shortness of breath. The patient did not fall off the toilet when she passed out/became near syncopal. Per the EMS reports sheet the patient was caught by her son and eased to the floor. Subsequently the patient did not have a CT of the head performed. Review of Systems Review of Systems: Narrative: A review of systems was attempted with the patient but was unreliable due the patient's dementia. ROS unobtainable: Yes unobtainable due to medical condition PMFSH Past Medical History Medical History (Updated 02/10/20 @ 07:00 by Analia Lindsey DO) Anxiety Arthritis CAD (coronary atherosclerotic disease) Carotid artery disease Chronic back pain Colon tumor Dementia Depression Diabetes Borderline Hypercholesterolemia Hypertension Osteoporosis Peripheral artery disease With history of lower extremity stent Pneumonia Rectal polyp Shingles Surgical History Surgical History H/O Spinal surgery H/O vascular surgery History of colon surgery Hx of rectal polypectomy Status post surgical removal of neoplasm of skin Right lower leg Family History Family History (Updated 11/06/19 @ 01:22 by Violeta Cronin NP) Father Hypertension Throat cancer Mother Hypertension Sibling Breast cancer Other Diabetes mellitus Social History Social History (Updated 02/10/20 @ 07:28 by Analia Lindsey DO) Social History: Primary care physician: Dr Gold Johnson She tells me neither son are her durable power prosecuting attorney. She is a full code. She is to smoke and she quit about 10 years ago she stated. She had a greater than 100 pack per year smoking history prior to quitting. No alcohol or illicit drugs. 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 Smoking status: Former smoker Second hand tobacco smoke exposure: No Alcohol intake: never Substance use: never Substance use type: does not use Living arrangements: with family Additional living arrangements comments: The patient
[2020-02-10 08:05] LABS: Hematocrit 34.7 % (37.0-47.0); Hemoglobin 12.1 g/dL (12.0-15.0); Mean Corpuscular HGB Conc 34.9 g/dl (32-36); Mean Corpuscular Hemoglobin 32.2 pg (26-34); Mean Corpuscular Volume 92.3 fl (80-100); Mean Platelet Volume 8.6 fl (7.4-10.4); Platelet Count Result 235 k/mm3 (150-375); Red Blood Count 3.76 M/mm3 (4.2-5.4); Red Cell Distribution Width 12.9 % (11.5-14.5); White Blood Count 10.7 K/mm3 (4.5-10.0)
[2020-02-10 08:17] LABS: Blood Urea Nitrogen 3 mg/dL (7-17); Calcium 8.7 mg/dL (8.4-10.2); Carbon Dioxide 20 mmol/L (22-30); Chloride 104 mmol/L (98-107); Estimated CRCL calculation 67 ml/min; Estimated Glomerular Filt Rate > 60; Glucose 102 mg/dL (65-105); Potassium 4.1 mmol/L (3.4-5.0); Sodium 130 mmol/L (137-145)
[2020-02-10] MEDS: FERROUS SULFATE 324 MG TABLET PO (08:39)
[2020-02-10] MEDS: carBAMazepine 200 MG TABLET PO ×3 (08:39→17:06)
[2020-02-10] MEDS: MEMANTINE 10 MG TABLET PO ×2 (08:40→17:06)
[2020-02-10] MEDS: ACIDOPHILUS/BULGARICUS CHEWABLE TABLET 1 TABLET PO ×4 (08:40→20:32)
[2020-02-10] MEDS: CLOPIDOGREL BISULFATE 75 MG TABLET PO (08:40)
[2020-02-10] MEDS: PANTOPRAZOLE 40 MG TABLET PO (08:40)
[2020-02-10] MEDS: lisinopriL 20 MG TABLET PO (08:40)
--- NOTE | 2020-02-10 10:40 | PM.IMPN ---
Progress Note: A&P Assessment and Plan (1) Syncope: Qualifiers: Syncope type: unspecified Qualified Code(s): R55 - Syncope and collapse Code(s): R55 - Syncope and collapse Status: Acute Assessment and Plan: Somewhat unclear if she had a syncopal or pre-syncopal episode. No orthostasis from supine to sitting but unable to perform standing BP for unclear reasons. Possibly dehydration given the low sodium. No brain CT performed. Will continue therapy for now and follow clinically. (2) Hyponatremia: Code(s): E87.1 - Hypo-osmolality and hyponatremia Status: Acute Assessment and Plan: Sodium 125 on admission. She has a history of low sodium. Also patient probably with dehydration as mentioned above. She has been having diarrhea which would contribute to this. With IV fluids sodium is improved to 130. Blood pressure stable. Will stop IV fluids later today. (3) Urinary retention: Code(s): R33.9 - Retention of urine, unspecified Status: Acute Assessment and Plan: Patient had palpable bladder and 800mL when Julio placed. The patient's symptoms of urinary frequency and urgency may be related to urine retention and not UTI. UA essentially clear. Still on Bactrim to complete a course. Julio trial in 1-2 days once she is up and around. (4) Diarrhea: Code(s): R19.7 - Diarrhea, unspecified Status: Acute Assessment and Plan: Possibly due to antibiotic therapy. No documented diarrhea here. Lactinex q.i.d. has been ordered but may not be necessary. Will stop this if no further diarrhea by tomorrow. (5) Weakness: Code(s): R53.1 - Weakness Status: Acute Assessment and Plan: Somewhat chronic. PT/OT ordered. Plan for patient to return home at discharge. (6) Dementia: Code(s): F03.90 - Unspecified dementia without behavioral disturbance Status: Chronic Assessment and Plan: Stable. Patient alert and mildly confused. Continue namenda. (7) Hypertension: Code(s): I10 - Essential (primary) hypertension Status: Chronic Assessment and Plan: BP reasonable but may have orthostatic HoTN. Could just be related to dehydration but will continue to monitor closely and repeat orthostatics tomorrow. Will continue Lisinopril for now. Place parameters. Subjective Date/time seen: 02/10/20 10:40 Interval history: 80yo female here for syncope. Chart reviewed. Patient slept poorly last night. She feels tired today. She denies any chest pain shortness of breath or cough. No nausea, vomiting or abdominal pain. No dysuria or hematuria. She walks with a walker at home. No trouble voiding in the past. When she voids, she has normal volumes. She states that she was having urinary frequency prompting her to call her doctor and an antibiotic was called in for possible UTI. Patient is alert but confused making history unreliable. Notes do state patient was recently started on Bactrim. Exam Narrative: Exam Narrative: Gen - NARD lying semi recumbent in bed Chest -left base inspiratory crackles otherwise clear. Normal respiratory rate. CV - RRR S1/S2. Abd - Soft, NT/ND, Positive BS -Julio secured draining clear yellow urine. Ext - No pedal edema. Negative Homans sign. Focal swelling noted around her right ankle with evidence of resolving ecchymosis. Right lateral malleolar tenderness. Mild tenderness to passive range of motion of the right ankle. Neuro -alert. Oriented x2 to location and president's name but did not know the month or year. Mild diffuse weakness but no focal weakness Psych -pleasant and cooperative. Skin - Warm and dry Objective Data Vital Signs Vital Signs: Vital Signs - 24 hr 02/09/20 16:44 02/09/20 16:52 02/09/20 17:49 Temperature 97.7 F Pulse Rate 72 76 76 Respiratory Rate 20 18 Blood Pressure 154/57 H 134/65 Pulse Oximetry 96
--- NOTE | 2020-02-10 11:19 | PCOTNOTE ---
Hold OT evaluation per RN. Patient needing ankle x-ray. Will attempt OT evaluation at later time.
--- NOTE | 2020-02-10 11:23 | PCPTNOTE ---
When checking with RN prior to PT eval - RN advised to wait on PT eval until ankle Xray report is known. Will check again later today. Kala Sorenson, PT, DPT
[2020-02-10 11:46] VITALS: BMI 25.5
--- NOTE | 2020-02-10 12:15 | PCPTNOTE ---
X ray taken - awaiting Ortho consult for ankle status in regards to PT involvement, wt bearing status, etc. Kala Sorenson, PT, DPT
[2020-02-10] MEDS: SODIUM CHLORIDE 0.9% IV 1,000 ML 100 ML IV CONT ×2 (12:41→17:07)
[2020-02-10 14:00] VITALS: BP 125/46; PULSE 86; RESP 18; TEMP 36.7; O2SAT 92
[2020-02-10 15:23] VITALS: BP 125/46; PULSE 86; RESP 18; TEMP 36.7; O2SAT 92
[2020-02-10 18:05] VITALS: BP 127/61; PULSE 80; RESP 16; TEMP 36.9; O2SAT 97
[2020-02-10 22:00] VITALS: BP 121/44; PULSE 85; RESP 16; TEMP 36.4; O2SAT 98
[2020-02-11 06:00] VITALS: BP 121/58; PULSE 86; RESP 16; TEMP 36.2; O2SAT 97
[2020-02-11 06:37] LABS: Blood Urea Nitrogen 5 mg/dL (7-17); Calcium 8.7 mg/dL (8.4-10.2); Carbon Dioxide 20 mmol/L (22-30); Chloride 104 mmol/L (98-107); Estimated CRCL calculation 67 ml/min; Estimated Glomerular Filt Rate > 60; Glucose 88 mg/dL (65-105); Potassium 3.6 mmol/L (3.4-5.0); Sodium 129 mmol/L (137-145)
[2020-02-11 08:00] VITALS: BP 121/58; PULSE 82; RESP 20; TEMP 36.2; O2SAT 97
[2020-02-11] MEDS: FERROUS SULFATE 324 MG TABLET PO (09:56)
[2020-02-11] MEDS: carBAMazepine 200 MG TABLET PO ×3 (09:56→18:09)
[2020-02-11] MEDS: MEMANTINE 10 MG TABLET PO ×2 (09:56→18:10)
[2020-02-11] MEDS: PANTOPRAZOLE 40 MG TABLET PO (09:57)
[2020-02-11] MEDS: lisinopriL 20 MG TABLET PO (10:00)
[2020-02-11] MEDS: ACIDOPHILUS/BULGARICUS CHEWABLE TABLET 1 TABLET PO ×3 (10:00→18:09)
[2020-02-11] MEDS: CLOPIDOGREL BISULFATE 75 MG TABLET PO (10:00)
--- NOTE | 2020-02-11 11:37 | PM.CNOR ---
Assessment and Plan Assessment and plan (1) Closed bimalleolar fracture of right ankle: Qualifiers: Encounter type: initial encounter Qualified Code(s): S82.841A - Displaced bimalleolar fracture of right lower leg, initial encounter for closed fracture Code(s): S82.841A - Displaced bimalleolar fracture of right lower leg, initial encounter for closed fracture Status: Acute Assessment and Plan: 80-year-old female with a subacute right bimalleolar ankle fracture. I did discuss with her the role of close reduction and casting try and improve the alignment versus ORIF. Tentatively this is planned for noon on February 12. Risks and potential complications were discussed in detail and questions answered. I would anticipate at least eight weeks of nonweightbearing on this leg regardless of the approach used (closed treatment versus open treatment). Thank you for the consultation. History of Present Illness HPI Consult date: 02/11/20 Consult reason: fracture Chief complaint: Passing out while on the commode Narrative: 80-year-old female who was admitted for syncopal episodes. On her admission evaluation, it was determined that she has got a right ankle fracture. In questioning her, she thinks that she fell at home about a month ago. She had seen her PCP who by the patient's report advised her son to take her to see somebody but that never happened. At this point she is a limited ambulator by her report. Review of Systems Constitutional: Constitutional: Reports no additional constitutional complaints, Denies excessive sweating and Denies fatigue Eyes: Eyes: Reports no additional eye complaints ENT: Reports system reviewed and no additional complaints, except as documented Cardiovascular: Cardiovascular: Denies chest pain at rest and Denies dyspnea Respiratory: Respiratory: Reports no additional respiratory complaints and Denies dyspnea Gastrointestinal: Gastrointestinal: Reports no additional gastrointestinal complaints Musculoskeletal: Musculoskeletal: Reports as per HPI Integumentary/Breasts: Skin/Breast: Reports system reviewed and no additional complaints, except as docu Neurologic: Reports as per HPI Endocrine: Endocrine: Denies excessive sweating and Denies fatigue Hematologic/Lymphatic: Hematologic/Lymphatic: Denies easy bleeding and Denies easy bruising PMFSH Past Medical History Medical History Anxiety Arthritis CAD (coronary atherosclerotic disease) Carotid artery disease Chronic back pain Colon tumor Dementia Depression Diabetes Borderline Hypercholesterolemia Hypertension Osteoporosis Peripheral artery disease With history of lower extremity stent Pneumonia Rectal polyp Shingles Surgical History Surgical History H/O Spinal surgery H/O vascular surgery History of colon surgery Hx of rectal polypectomy Status post surgical removal of neoplasm of skin Right lower leg Family History Family History Father Hypertension Throat cancer Mother Hypertension Sibling Breast cancer Other Diabetes mellitus Social History Social History Social History: Primary care physician: Dr Gold Johnson She tells me neither son are her durable power real estate associate attorney. She is a full code. She is to smoke and she quit about 10 years ago she stated. She had a greater than 100 pack per year smoking history prior to quitting. No alcohol or illicit drugs. 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 Smoking status: Former smoker Second hand tobacco smoke exposure: No Alcohol intake: never Substance use: never Substance use type: does not use Living arrangements: with family Additional living arrangements comments: The patient l
[2020-02-11 13:08] VITALS: BMI 10.0
[2020-02-11 13:10] VITALS: BMI 10.0
[2020-02-11 14:00] VITALS: BP 138/62; PULSE 85; RESP 16; TEMP 35.7; O2SAT 100
--- NOTE | 2020-02-11 14:17 | PM.IMPN ---
Progress Note: A&P Assessment and Plan (1) Syncope: Qualifiers: Syncope type: unspecified Qualified Code(s): R55 - Syncope and collapse Code(s): R55 - Syncope and collapse Status: Acute Assessment and Plan: CT brain not done on admission. No further episodes. Probably result of hyponatremia, dehydration. Will continue to monitor with treatment of other issues as noted below. (2) Hyponatremia: Code(s): E87.1 - Hypo-osmolality and hyponatremia Status: Acute Assessment and Plan: Sodium 125 on admission. Previous history of low sodium. Sodium presently 129 today with IV fluids stopped yesterday. Will monitor for now. (3) Closed bimalleolar fracture of right ankle: Qualifiers: Encounter type: initial encounter Qualified Code(s): S82.841A - Displaced bimalleolar fracture of right lower leg, initial encounter for closed fracture Code(s): S82.841A - Displaced bimalleolar fracture of right lower leg, initial encounter for closed fracture Status: Acute Assessment and Plan: Patient has had several falls. She does recall injuring her right ankle somewhere in the past month. On 02/10/2020 with comminuted medial and lateral malleolar fractures with Baldwin type B to injury pattern. Dr. Billy consulted and appreciate input. Discussed with Dr. Billy today. Will initially attempted closed reduction and casting under anesthesia. Plan for later this week. (4) Urinary retention: Code(s): R33.9 - Retention of urine, unspecified Status: Acute Assessment and Plan: Urinary catheter placed after retention documented. Completed course of Bactrim. Plan to do Julio trial once more mobile. (5) Diarrhea: Qualifiers: Diarrhea type: unspecified type Qualified Code(s): R19.7 - Diarrhea, unspecified Code(s): R19.7 - Diarrhea, unspecified Status: Acute Assessment and Plan: Possibly due to antibiotic therapy. No documented diarrhea here. Lactinex q.i.d. in place. Will discontinue with no further diarrhea noted. (6) Weakness: Code(s): R53.1 - Weakness Status: Acute Assessment and Plan: With ankle fracture now documented, will most likely need to wait for full PT/OT evaluation and treatments until definitive treatment of fracture. Plan is for return home at discharge if able. (7) Dementia: Qualifiers: Dementia type: unspecified type Dementia behavioral disturbance: without behavioral disturbance Qualified Code(s): F03.90 - Unspecified dementia without behavioral disturbance Code(s): F03.90 - Unspecified dementia without behavioral disturbance Status: Chronic Assessment and Plan: Stable. Will continue Namenda and monitor. (8) Hypertension: Qualifiers: Hypertension type: essential hypertension Qualified Code(s): I10 - Essential (primary) hypertension Code(s): I10 - Essential (primary) hypertension Status: Chronic Assessment and Plan: Blood pressure reviewed on 02/11/2020 and presently stable. Continue to monitor on lisinopril. (9) DVT prophylaxis: Code(s): Z29.9 - Encounter for prophylactic measures, unspecified Status: Acute Time Spent With Patient Time with patient: 15 - 25 minutes Subjective Date/time seen: 02/11/20 14:17 Interval history: Date of Service: 02/11/2020. Admitted with hyponatremia, syncope. Found to have bimalleolar fracture of right ankle. Does have pain in right ankle. No current dizziness. No chest pain or shortness of breath. No abdominal pain. Review of Systems Constitutional: Constitutional: Denies chills and Denies fever(s) ENT: Denies dysphagia Cardiovascular: Cardiovascular: Denies chest pain Respiratory: Respiratory: Denies dyspnea Gastrointestinal: Gastrointestinal: Denies abdominal pain, Denies nausea and Denies vomiting Genitourinary: Comments: catheter in place
[2020-02-12] VITALS (8 sets, daily range): BP systolic 143–162; BP diastolic 55–81; PULSE 80–89; RESP 16–18; TEMP 36.1–37; O2SAT 94–97
[2020-02-12 06:23] LABS: Blood Urea Nitrogen 6 mg/dL (7-17); Calcium 8.8 mg/dL (8.4-10.2); Carbon Dioxide 25 mmol/L (22-30); Chloride 98 mmol/L (98-107); Estimated CRCL calculation 67 ml/min; Estimated Glomerular Filt Rate > 60; Glucose 92 mg/dL (65-105); Potassium 4.3 mmol/L (3.4-5.0); Sodium 128 mmol/L (137-145)
--- NOTE | 2020-02-12 11:39 | PM.IMPN ---
Progress Note: A&P Assessment and Plan (1) Syncope: Qualifiers: Syncope type: unspecified Qualified Code(s): R55 - Syncope and collapse Code(s): R55 - Syncope and collapse Status: Acute Assessment and Plan: CT brain not done on admission. Now stable with no further episodes. Probably result of hyponatremia, dehydration. Will continue to monitor with treatment of other issues as noted below. Plan to go to SNF at discharge. (2) Hyponatremia: Code(s): E87.1 - Hypo-osmolality and hyponatremia Status: Acute Assessment and Plan: Sodium 125 on admission. Previous history of low sodium. Sodium slightly lower than yesterday at 128 today. With decreased intake and nausea, will restart low-dose IV fluids today. Will continue to monitor. May need to consider adding sodium tablets if not stabilizing. (3) Closed bimalleolar fracture of right ankle: Qualifiers: Encounter type: initial encounter Qualified Code(s): S82.841A - Displaced bimalleolar fracture of right lower leg, initial encounter for closed fracture Code(s): S82.841A - Displaced bimalleolar fracture of right lower leg, initial encounter for closed fracture Status: Acute Assessment and Plan: Patient has had several falls. She does recall injuring her right ankle somewhere in the past month. X-ray on 02/10/2020 with comminuted medial and lateral malleolar fractures with Baldwin type B to injury pattern. Dr. Billy consulted and appreciate input. Current plan for attempted closed reduction and casting tomorrow. ORIF possible if unable to reset with closed reduction. (4) Urinary retention: Code(s): R33.9 - Retention of urine, unspecified Status: Acute Assessment and Plan: Urinary catheter placed after retention documented. Completed course of Bactrim. Plan to do Julio trial once more mobile. (5) Weakness: Code(s): R53.1 - Weakness Status: Acute Assessment and Plan: Continue PT/OT as ordered. Plan for SNF at discharge. (6) Dementia: Qualifiers: Dementia behavioral disturbance: without behavioral disturbance Dementia type: unspecified type Qualified Code(s): F03.90 - Unspecified dementia without behavioral disturbance Code(s): F03.90 - Unspecified dementia without behavioral disturbance Status: Chronic Assessment and Plan: Stable. Will continue Namenda and monitor. (7) Hypertension: Qualifiers: Hypertension type: essential hypertension Qualified Code(s): I10 - Essential (primary) hypertension Code(s): I10 - Essential (primary) hypertension Status: Chronic Assessment and Plan: Blood pressure reviewed on 02/12/2020 and mildly elevated but acceptable. Continue to monitor on lisinopril. Will adjust treatment as needed. (8) Diarrhea: Qualifiers: Diarrhea type: unspecified type Qualified Code(s): R19.7 - Diarrhea, unspecified Code(s): R19.7 - Diarrhea, unspecified Status: Acute Assessment and Plan: Possibly due to antibiotic therapy. No documented diarrhea here. Lactinex discontinued. Will monitor. (9) DVT prophylaxis: Code(s): Z29.9 - Encounter for prophylactic measures, unspecified Status: Acute Assessment and Plan: SCDs. Time Spent With Patient Time with patient: 15 - 25 minutes Subjective Date/time seen: 02/12/20 11:39 Interval history: Date of Service: 02/12/2020. Admitted with hyponatremia, syncope. Found to have bimalleolar fracture of right ankle. Complains of nausea today but no vomiting. Has had decreased intake as result of nausea. No abdominal pain. Continues to have pain in right ankle. No chest pain or shortness of breath. Review of Systems Constitutional: Constitutional: Denies chills and Denies fever(s) ENT: Denies dysphagia Cardiovascular: Cardiovascular: Denies chest pain Respiratory: Respirat
[2020-02-12] MEDS: carBAMazepine 200 MG TABLET PO ×3 (11:46→17:24)
[2020-02-12] MEDS: FERROUS SULFATE 324 MG TABLET PO (11:46)
[2020-02-12] MEDS: lisinopriL 20 MG TABLET PO (11:47)
[2020-02-12] MEDS: MEMANTINE 10 MG TABLET PO ×2 (11:47→17:24)
[2020-02-12] MEDS: CLOPIDOGREL BISULFATE 75 MG TABLET PO (11:47)
[2020-02-12] MEDS: PANTOPRAZOLE 40 MG TABLET PO (11:48)
[2020-02-12] MEDS: SODIUM CHLORIDE 0.9% IV 1,000 ML 50 ML IV CONT ×2 (12:15→23:55)
--- NOTE | 2020-02-12 16:11 | PCPTNOTE ---
The patient treatment was not able to be completed this afternoon. Therapy needs met in A.M.. Will plan to continue treatment per plan of care.
--- NOTE | 2020-02-12 16:46 | WPDANESEPP ---
Anes - Eval Pre Procedure Procedure: Operation Date: 02/13/20 12:00 Proposed Procedures p Closed Reduction Versus Open Reduction Internal Fixation RIght Ankle Fracture - Wilver Billy MD Date/Time: 02/12/20 16:46 Surgeon: Wenceslao Preop Diagnosis: Displaced malleolar fracture right lower leg Pre Op Diagnosis: Passing out while on the commode Patient Data Age: 80 Gender: F Height: 5 ft 4 in Weight: 67.5 kg Last Vital Signs Temp 98.3 F 02/12/20 15:11 Pulse 82 02/12/20 15:11 Resp 16 02/12/20 15:11 BP 150/78 H 02/12/20 15:11 Pulse Ox 97 02/12/20 15:11 Allergies Allergy/AdvReac Type Severity Reaction Status Date / Time Penicillins Allergy Intermediate ITCHING, Verified 11/05/19 15:50 BURNING BEHIND EARS Home Medications Medication Instructions Recorded Confirmed Type atorvastatin 40 mg PO DAILY 11/05/19 02/10/20 History carbamazepine 200 mg PO TID 11/05/19 02/10/20 History clopidogrel 75 mg PO DAILY 11/05/19 02/10/20 History hydrocodone-acetaminophen [[place]] 1 tablet PO Q8H PRN 11/05/19 02/10/20 History hydroxyzine HCl 25 mg PO BID PRN 11/05/19 02/10/20 History lisinopril 20 mg PO DAILY 11/05/19 02/10/20 History memantine 10 mg PO BID 11/05/19 02/10/20 History pantoprazole 40 mg PO DAILY 11/05/19 02/10/20 History bupropion HCl 150 mg PO BID 02/10/20 02/10/20 History ferrous sulfate 65 mg PO DAILY 02/10/20 02/10/20 History sulfamethoxazole-trimethoprim 1 tablet PO BID 02/10/20 02/10/20 History Laboratory Tests 02/12/20 05:46 Sodium 128 mmol/L L mmol/L (137-145) Potassium 4.3 mmol/L mmol/L (3.4-5.0) Chloride 98 mmol/L mmol/L (98-107) Carbon Dioxide 25 mmol/L mmol/L (22-30) BUN 6 mg/dL L mg/dL (7-17) Creatinine 0.50 mg/dL L mg/dL (0.7-1.0) Estim Creat Clear Calc 67 ml/min ml/min Estimated GFR > 60 (59 - ) Glucose 92 mg/dL mg/dL (65-105) Calcium 8.8 mg/dL mg/dL (8.4-10.2) Patient hx anesthesia problems: none Family hx anesthesia problems: none [facility] Past Medical History Medical History Anxiety Arthritis CAD (coronary atherosclerotic disease) Carotid artery disease Chronic back pain Colon tumor Dementia Depression Diabetes Borderline Hypercholesterolemia Hypertension Osteoporosis Peripheral artery disease With history of lower extremity stent Pneumonia Rectal polyp Shingles Surgical History Surgical History H/O Spinal surgery H/O vascular surgery History of colon surgery Hx of rectal polypectomy Status post surgical removal of neoplasm of skin Right lower leg Family History Family History Father Hypertension Throat cancer Mother Hypertension Sibling Breast cancer Other Diabetes mellitus Social History Social History Social History: Primary care physician: Dr Gold Johnson She tells me neither son are her durable power divorce attorney. She is a full code. She is to smoke and she quit about 10 years ago she stated. She had a greater than 100 pack per year smoking history prior to quitting. No alcohol or illicit drugs. 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 Smoking status: Former smoker Second hand tobacco smoke exposure: No Alcohol intake: never Substance use: never Substance use type: does not use Living arrangements: with family Additional living arrangements comments: The patient lives with 2 of her sons. She also has a 3rd child. Gender identity (if verbalized by the patient): Female Spiritual care concerns: No Agree to blood products: Yes Comments EKG HR 72 SINUS RHYTHM BORDERLINE T WAVE ABNORMALITY- INFERIOR LEADS BASELINE ARTIFACT- I, II, III, AVR, AVL, AVF BORDERLINE ECG Exam Day of Procedure 05
[2020-02-13] VITALS (14 sets, daily range): BP systolic 94–183; BP diastolic 51–80; PULSE 78–98; RESP 14–18; TEMP 36.1–37.2; O2SAT 92–100
[2020-02-13 06:14] LABS: Hematocrit 34.4 % (37.0-47.0); Mean Corpuscular HGB Conc 34.9 g/dl (32-36); Mean Corpuscular Volume 91.7 fl (80-100); Mean Platelet Volume 8.5 fl (7.4-10.4); Platelet Count Result 216 k/mm3 (150-375); Red Blood Count 3.75 M/mm3 (4.2-5.4); Red Cell Distribution Width 12.6 % (11.5-14.5); White Blood Count 8.9 K/mm3 (4.5-10.0)
[2020-02-13 06:34] LABS: Blood Urea Nitrogen 6 mg/dL (7-17); Calcium 8.2 mg/dL (8.4-10.2); Carbon Dioxide 20 mmol/L (22-30); Chloride 97 mmol/L (98-107); Estimated CRCL calculation 81 ml/min; Estimated Glomerular Filt Rate > 60; Glucose 78 mg/dL (65-105); Potassium 3.7 mmol/L (3.4-5.0); Sodium 125 mmol/L (137-145)
--- NOTE | 2020-02-13 09:58 | PC.NURSE ---
called report to pre-op
--- NOTE | 2020-02-13 10:41 | PC.NURSE ---
To OR per [bed ], IV infusing without difficulty. pulses present, edema noted unchanged from earlier assessment, sensation normal, spokw with son and updated on condition and time of surgery, pt mildly confused, in no apparent distress.[ ]
[2020-02-13 11:03] LABS: Glucose Point of Care 74 (65-105)
[2020-02-13] MEDS: LACTATED RINGERS 1,000 ML 30 ML IV CONT ×2 (11:11→14:05)
--- NOTE | 2020-02-13 11:31 | WPDANESEFPP ---
Anes - Eval Final PreProcedure Day of Procedure 02/13/20 11:31 Patient weight: normal Heart: regular rate and rhythm Lungs: clear to auscultation Neurological: confused Last oral intake: >/= 8 hours ASA classification: IV Emergent: no Anesthetic plan: proceed Anesthesia type and monitoring: general LMA and standard monitoring Informed Consent: The patient's anesthetic plan and its attendant risks and benefits were discussed with the patient/family/POA. Questions were solicited and answers provided to the satisfaction of the patient/family/POA.
--- NOTE | 2020-02-13 11:44 | SUR.PREOP ---
1130- CALLED PT SON, JENNIFER TO UPDATE HIM THAT MOTHER WAS GOING TO SURGERY WITH DR. SOTO AT 1200. ANSWERED ALL QUESTIONS JENNIFER HAD.
[2020-02-13] MEDS: ceFAZolin 2 GM/D5W 50 ML 2 GM/50 ML BAG IVPB ×2 (11:52→19:56)
[2020-02-13 14:15] LABS: Glucose Point of Care 108 (65-105)
--- NOTE | 2020-02-13 14:20 | PM.PROC ---
Procedure Note - Detailed Date of procedure: 02/13/20 Pre-op diagnosis: Passing out while on the commode Right bimalleolar ankle fracture Post-op diagnosis: same Procedure performed: ORIF right lateral malleolus Description of procedure: The patient was identified and proper site identified. She was taken to the operating room and transferred to the OR table placing her supine taking care to pad her torso and extremities. After general anesthetic induction and intubation a nonsterile tourniquet was placed the midportion of her right thigh. The right lower extremity was prepped and draped in usual sterile fashion. The extremity was exsanguinated minimally and the tourniquet was inflated to 250 mmHg remaining up for about 75 minutes. A longitudinal incision was made over the distal fibula. Subcutaneous tissue was sharply dissected full thickness down to the fibula. A branch of the sural nerve was encountered. It was dissected free and protected during the procedure in spite of the tourniquet there was quite a bit of venous back bleeding throughout the procedure. Attempted hemostasis was made throughout the procedure. The fracture site was cleared of debris as much as could be given that this fracture was a month old. A reasonable reduction was able to be obtained and then secured with a distal fibular locking side plate with fluoroscopic assistance and although the reduction was not anatomic it was dramatically improved with the talus position well under the tibial plafond because of the presence of the skin graft as well as the amount of bleeding encountered the decision was made not to go medially on this ankle. Wound was irrigated with sterile antibiotic solution. Eighth 8th inch Hemovac drain was placed taking care not to trap it during the closure. Skin edges reapproximated with a combination of two O and three O nylon sutures.. The tourniquet was released. Estimated blood loss is 300 cc. She received perioperative antibiotics. There were no known intraoperative complications. Anesthesia: GLMA Surgeon: Wilver Billy MD [facility] Administrative Assistant: Sade Estimated blood loss (mL): 300 Tourniquet time (min): 75 Drains: Yes (1/8 inch Hemovac) Packing: No Pathology: none sent Complications: No immediate complications Condition: stable Disposition: PACU
--- NOTE | 2020-02-13 14:42 | PCPTNOTE ---
Attempted afternoon therapy session, Pt is in surgery. Will continue with POC tomorrow.
--- NOTE | 2020-02-13 15:35 | PCDIET ---
Nutrition Follow-Up Complete: Inadequate Oral Intake as related to Dementia as evidenced by poor po intake reported/weight loss of 10 ibs in 4 months. Adequate Intake of at least 50% of meals/supplements Goal:Goal met. Continue goal. Pt current nutrition is Regular with Ensure compact BID. Nutrition recommendation: Agree Last recorded weight is 67.5 kg (need new wt) Bowel Motility: No diarrhea or BM since 02/08 documented Labs Reviewed:02/12 Hct 34.4, Na 125, BUN 6, Cr .40 Meds Noted:No meds given today Additional Notes: ORIF right lateral mellelous performed. Plans for SNF placement. Pt was eating 50-100% of all meals and then has refused last few meals. Current diet appropriate. We will continue to monitor for adequate intake every 5 days. Recommend daily weights.
[2020-02-13] MEDS: carBAMazepine 200 MG TABLET PO (15:44)
[2020-02-13] MEDS: PANTOPRAZOLE 40 MG TABLET PO (15:47)
[2020-02-13] MEDS: MEMANTINE 10 MG TABLET PO (15:48)
[2020-02-13] MEDS: lisinopriL 20 MG TABLET PO (15:48)
[2020-02-13] MEDS: SODIUM CHLORIDE 1 GM TABLET PO (15:56)
[2020-02-13] MEDS: DOCUSATE SODIUM 100 MG CAPSULE PO (16:02)
--- NOTE | 2020-02-13 17:16 | PM.IMPN ---
Progress Note: A&P Assessment and Plan (1) Syncope: Qualifiers: Syncope type: unspecified Qualified Code(s): R55 - Syncope and collapse Code(s): R55 - Syncope and collapse Status: Acute Assessment and Plan: CT brain not done on admission. Has had no further episodes. Probably result of hyponatremia, dehydration. Continue PT/OT. Anticipate need for SNF at discharge. Will continue to monitor. (2) Hyponatremia: Code(s): E87.1 - Hypo-osmolality and hyponatremia Status: Acute Assessment and Plan: Sodium decreased back down to 125 today. With need for surgical correction of right ankle fraction, will leave IV fluids in place today. Sodium tablets added. Will continue to monitor. (3) Closed bimalleolar fracture of right ankle: Qualifiers: Encounter type: initial encounter Qualified Code(s): S82.841A - Displaced bimalleolar fracture of right lower leg, initial encounter for closed fracture Code(s): S82.841A - Displaced bimalleolar fracture of right lower leg, initial encounter for closed fracture Status: Acute Assessment and Plan: Patient has had several falls. She does recall injuring her right ankle somewhere in the past month. X-ray on 02/10/2020 with comminuted medial and lateral malleolar fractures with Baldwin type B to injury pattern. Dr. Billy consulted and appreciate input. Patient is now S/P ORIF right ankle today. Postoperative care per Orthopedics. (4) Urinary retention: Code(s): R33.9 - Retention of urine, unspecified Status: Acute Assessment and Plan: Urinary catheter placed after retention documented. Completed course of Bactrim. Plan to do Julio trial once more mobile. (5) Weakness: Code(s): R53.1 - Weakness Status: Acute Assessment and Plan: Probably multifactorial. Continue PT/OT. Plan for SNF at discharge. (6) Dementia: Qualifiers: Dementia type: unspecified type Dementia behavioral disturbance: without behavioral disturbance Qualified Code(s): F03.90 - Unspecified dementia without behavioral disturbance Code(s): F03.90 - Unspecified dementia without behavioral disturbance Status: Chronic Assessment and Plan: Currently remains pleasant and cooperative. Will continue Namenda. Will monitor. (7) Hypertension: Qualifiers: Hypertension type: essential hypertension Qualified Code(s): I10 - Essential (primary) hypertension Code(s): I10 - Essential (primary) hypertension Status: Chronic Assessment and Plan: Blood pressure reviewed on 02/13/2020 and now improved. Continue to monitor on lisinopril. Will adjust treatment as needed. (8) Diarrhea: Qualifiers: Diarrhea type: unspecified type Qualified Code(s): R19.7 - Diarrhea, unspecified Code(s): R19.7 - Diarrhea, unspecified Status: Resolved Assessment and Plan: Possibly due to antibiotic therapy. No documented diarrhea here. Lactinex discontinued. Will monitor. (9) DVT prophylaxis: Code(s): Z29.9 - Encounter for prophylactic measures, unspecified Status: Acute Assessment and Plan: SCDs. Time Spent With Patient Time with patient: 15 - 25 minutes Subjective Date/time seen: 02/13/20 17:16 Interval history: Date of Service: 02/13/2020. Admitted with hyponatremia, syncope. Found to have bimalleolar fracture of right ankle. Returned from OR. Patient drowsy. No significant pain right ankle currently. No chest pain. No shortness of breath. No abdominal pain, nausea or vomiting. Review of Systems Review of Systems: Narrative: Tired. Constitutional: Constitutional: Denies chills and Denies fever(s) ENT: Denies dysphagia Cardiovascular: Cardiovascular: Denies chest pain Respiratory: Respiratory: Denies dyspnea Gastrointestinal: Gastrointestinal: Denies abdominal pain, Denies dysphagia, Reports
[2020-02-13] MEDS: SODIUM CHLORIDE 0.9% IV 1,000 ML 125 ML IV CONT (17:48)
--- NOTE | 2020-02-13 18:31 | PC.NURSE ---
Returned from OR per [ ]BED SPLINT INTACT SITE CLEAN WIGGLES TOES, SESNATION INTACT, PULSES INTACT, IV SITE CLEAN AND PATENT. DENIES THE NEED FOR PAIN SPOKE TO SON UPDATED ON SURGERY.
[2020-02-14] VITALS (7 sets, daily range): BP systolic 126–150; BP diastolic 44–71; PULSE 96–107; RESP 16–20; TEMP 36.4–36.8; O2SAT 94–100
[2020-02-14] MEDS: ceFAZolin 2 GM/D5W 50 ML 2 GM/50 ML BAG IVPB ×2 (04:05→11:40)
[2020-02-14] MEDS: SODIUM CHLORIDE 0.9% IV 1,000 ML 125 ML IV CONT ×2 (04:05→13:00)
[2020-02-14 06:21] LABS: Basophils Percent Auto 0.4 % (0.2-1.2); Eosinophils Absolute Auto 0.1 K/mm3 (0-0.3); Eosinophils Percent Auto 0.9 % (0-4.4); Hematocrit 27.2 % (37.0-47.0); Immature Granulocyte Absolute 0.06 K/mm3 (0.00-0.031); Immature Granulocyte Percent A 0.5 % (0-0.5); Lymphocytes Absolute Auto 1.74 K/mm3 (0.9-3.2); Lymphocytes Percent Auto 15.5 % (18.3-44.2); Mean Corpuscular HGB Conc 33.1 g/dl (32-36); Mean Corpuscular Hemoglobin 31.7 pg (26-34); Mean Corpuscular Volume 95.8 fl (80-100); Mean Platelet Volume 9.2 fl (7.4-10.4); Monocytes Absolute Auto 0.9 K/mm3 (0.1-0.6); Monocytes Percent Auto 7.9 % (2.6-8.5); Neutrophils Absolute Auto 8.4 K/mm3 (1.3-6.7); Neutrophils Percent Auto 74.8 % (45.5-73.1); Nucleated Red Blood Cells Perc 0.2 % (0.0-0.2); Platelet Count Result 228 k/mm3 (150-375); Red Blood Count 2.84 M/mm3 (4.2-5.4); Red Cell Distribution Width 13.2 % (11.5-14.5); White Blood Count 11.2 K/mm3 (4.5-10.0)
[2020-02-14 07:05] LABS: Blood Urea Nitrogen 4 mg/dL (7-17); Calcium 7.9 mg/dL (8.4-10.2); Carbon Dioxide 18 mmol/L (22-30); Chloride 103 mmol/L (98-107); Estimated CRCL calculation 81 ml/min; Estimated Glomerular Filt Rate > 60; Glucose 80 mg/dL (65-105); Potassium 3.7 mmol/L (3.4-5.0); Sodium 130 mmol/L (137-145)
--- NOTE | 2020-02-14 07:42 | P.PNAN_ITS ---
Anes - Prog Note Post-Op Date/Time: 02/14/20 07:42 Cardiovascular status: normal Respiratory status: normal Airway patency: baseline Mental status: baseline Post-Op hydration status: normal Vital Signs: Last Vital Signs Temp 36.8 C 02/14/20 06:00 Pulse 107 H 02/14/20 06:00 Resp 20 02/14/20 06:00 BP 136/52 L 02/14/20 06:00 Pulse Ox 98 02/14/20 06:00 I/O: Intake & Output 02/13/20 02/13/20 02/14/20 15:59 23:59 07:59 Intake Total 630 724 5393 Output Total 175 815 Balance 550 -65 435 Laboratory Tests 02/14/20 05:58 02/14/20 05:58 02/13/20 02/13/20 02/14/20 11:01 14:12 05:58 WBC 11.2 H RBC 2.84 L Hgb 9.0 L D Hct 27.2 L MCV 95.8 MCH 31.7 MCHC 33.1 RDW 13.2 Plt Count 228 MPV 9.2 Immature Gran % (Auto) 0.5 Neut % (Auto) 74.8 H Lymph % (Auto) 15.5 L Hemphill % (Auto) 7.9 Eos % (Auto) 0.9 Baso % (Auto) 0.4 Lymph # (Auto) 1.74 Hemphill # (Auto) 0.9 H Eos # (Auto) 0.1 Baso # (Auto) 0.0 Abs Immat Gran (auto) 0.06 H Absolute Neuts (auto) 8.4 H Absolute Nucleated RBC 0.0 Nucleated RBC % 0.2 Sodium Potassium Chloride Carbon Dioxide BUN Creatinine Estim Creat Clear Calc Estimated GFR Glucose POC Capillary Glucose 74 108 Calcium 02/14/20 05:58 WBC RBC Hgb Hct MCV MCH MCHC RDW Plt Count MPV Immature Gran % (Auto) Neut % (Auto) Lymph % (Auto) Hemphill % (Auto) Eos % (Auto) Baso % (Auto) Lymph # (Auto) Hemphill # (Auto) Eos # (Auto) Baso # (Auto) Abs Immat Gran (auto) Absolute Neuts (auto) Absolute Nucleated RBC Nucleated RBC % Sodium 130 L Potassium 3.7 Chloride 103 Carbon Dioxide 18 L BUN 4 L Creatinine 0.40 L Estim Creat Clear Calc 81 Estimated GFR > 60 Glucose 80 POC Capillary Glucose Calcium 7.9 L Post-procedural complaints: none Patient Feedback: Patient satisfied with anesthetic care.
[2020-02-14] MEDS: DOCUSATE SODIUM 100 MG CAPSULE PO ×2 (08:21→17:47)
[2020-02-14] MEDS: MEMANTINE 10 MG TABLET PO ×2 (08:21→17:47)
[2020-02-14] MEDS: SODIUM CHLORIDE 500 MG TABLET PO ×2 (08:22→17:47)
--- NOTE | 2020-02-14 13:17 | PM.IMPN ---
Progress Note: A&P Assessment and Plan (1) Syncope: Qualifiers: Syncope type: unspecified Qualified Code(s): R55 - Syncope and collapse Code(s): R55 - Syncope and collapse Status: Acute Assessment and Plan: CT brain not done on admission. No further episodes. Probably result of hyponatremia, dehydration. Continue PT/OT. Anticipate going to [facility] at discharge. Will continue to monitor. (2) Hyponatremia: Code(s): E87.1 - Hypo-osmolality and hyponatremia Status: Acute Assessment and Plan: Sodium now up to 130 today. Oral intake better. Will discontinue IV fluids. Decrease oral sodium tablets. Will continue to monitor. (3) Closed bimalleolar fracture of right ankle: Qualifiers: Encounter type: initial encounter Qualified Code(s): S82.841A - Displaced bimalleolar fracture of right lower leg, initial encounter for closed fracture Code(s): S82.841A - Displaced bimalleolar fracture of right lower leg, initial encounter for closed fracture Status: Acute Assessment and Plan: Patient has had several falls. She does recall injuring her right ankle somewhere in the past month. X-ray on 02/10/2020 with comminuted medial and lateral malleolar fractures with Baldwin type B to injury pattern. Dr. Billy consulted and appreciate input. Patient is now S/P ORIF right ankle on 02/13/2020. POD#2. Postoperative care per Orthopedics. (4) Urinary retention: Code(s): R33.9 - Retention of urine, unspecified Status: Acute Assessment and Plan: Urinary catheter placed after retention documented. Completed course of Bactrim. Plan to do Julio trial once more mobile. (5) Weakness: Code(s): R53.1 - Weakness Status: Acute Assessment and Plan: Probably multifactorial. Continue PT/OT. Plan for SNF at discharge. (6) Dementia: Qualifiers: Dementia behavioral disturbance: without behavioral disturbance Dementia type: unspecified type Qualified Code(s): F03.90 - Unspecified dementia without behavioral disturbance Code(s): F03.90 - Unspecified dementia without behavioral disturbance Status: Chronic Assessment and Plan: Remains pleasant and cooperative. Will continue Namenda. Will monitor. (7) Hypertension: Qualifiers: Hypertension type: essential hypertension Qualified Code(s): I10 - Essential (primary) hypertension Code(s): I10 - Essential (primary) hypertension Status: Chronic Assessment and Plan: Blood pressure reviewed on 02/14/2020 and stable. Continue to monitor on lisinopril. Will adjust treatment as needed. (8) Diarrhea: Qualifiers: Diarrhea type: unspecified type Qualified Code(s): R19.7 - Diarrhea, unspecified Code(s): R19.7 - Diarrhea, unspecified Status: Resolved Assessment and Plan: Possibly due to antibiotic therapy. No documented diarrhea here. Lactinex discontinued. Will monitor. (9) DVT prophylaxis: Code(s): Z29.9 - Encounter for prophylactic measures, unspecified Status: Acute Assessment and Plan: SCDs. Time Spent With Patient Time with patient: 15 - 25 minutes Subjective Date/time seen: 02/14/20 13:17 Interval history: Date of Service: 02/14/2020. Admitted with hyponatremia, syncope. Found to have bimalleolar fracture of right ankle. Sitting in recliner. Doing better today. Pain in right ankle more tolerable. Does feel cold. No nausea or vomiting today. No chest pain. No shortness of breath. Review of Systems Review of Systems: Narrative: Feeling better today. Constitutional: Constitutional: Denies chills and Denies fever(s) ENT: Denies dysphagia Cardiovascular: Cardiovascular: Denies chest pain Respiratory: Respiratory: Denies dyspnea Gastrointestinal: Gastrointestinal: Denies abdominal pain, Denies dysphagia, Denies nausea and Denies vomiting G
[2020-02-14] MEDS: CLOPIDOGREL BISULFATE 75 MG TABLET PO (17:47)
[2020-02-14] MEDS: polyethylene glycoL 3350 17 GM POWD.PACK PO (17:47)
--- NOTE | 2020-02-14 21:12 | PC.NURSE ---
Attempted to return son Gee's phone call. Left voice message.
[2020-02-15 06:00] VITALS: BP 163/68; PULSE 95; RESP 18; TEMP 36.6; O2SAT 96
[2020-02-15 07:19] LABS: Blood Urea Nitrogen 3 mg/dL (7-17); Calcium 8.1 mg/dL (8.4-10.2); Carbon Dioxide 22 mmol/L (22-30); Chloride 106 mmol/L (98-107); Estimated CRCL calculation 81 ml/min; Estimated Glomerular Filt Rate > 60; Glucose 85 mg/dL (65-105); Potassium 3.2 mmol/L (3.4-5.0); Sodium 132 mmol/L (137-145)
[2020-02-15] MEDS: lisinopriL 20 MG TABLET PO (08:44)
[2020-02-15] MEDS: SODIUM CHLORIDE 500 MG TABLET PO ×2 (08:44→17:24)
[2020-02-15] MEDS: POTASSIUM CHLORIDE 20 MEQ TABLET 40 MEQ PO (08:44)
[2020-02-15] MEDS: PANTOPRAZOLE 40 MG TABLET PO (08:44)
[2020-02-15] MEDS: MEMANTINE 10 MG TABLET PO ×2 (08:45→17:24)
[2020-02-15] MEDS: CLOPIDOGREL BISULFATE 75 MG TABLET PO (08:45)
[2020-02-15] MEDS: DOCUSATE SODIUM 100 MG CAPSULE PO ×2 (08:45→17:24)
[2020-02-15] MEDS: polyethylene glycoL 3350 17 GM POWD.PACK PO (08:47)
[2020-02-15 10:39] VITALS: BP 141/61; PULSE 94; RESP 18; TEMP 36.8; O2SAT 95
[2020-02-15 10:40] VITALS: BP 164/75; PULSE 107; RESP 20; O2SAT 97
--- NOTE | 2020-02-15 11:21 | PM.IMPN ---
Progress Note: A&P Assessment and Plan (1) Syncope: Qualifiers: Syncope type: unspecified Qualified Code(s): R55 - Syncope and collapse Code(s): R55 - Syncope and collapse Status: Acute Assessment and Plan: CT brain not done on admission. No further episodes. Probably result of hyponatremia, dehydration. Continue PT/OT. Anticipate going to [facility] at discharge. Will continue to monitor. (2) Hyponatremia: Code(s): E87.1 - Hypo-osmolality and hyponatremia Status: Acute Assessment and Plan: Sodium now up to 132 today. Oral intake better. Oral sodium tablets decreased. Will continue to monitor. (3) Closed bimalleolar fracture of right ankle: Qualifiers: Encounter type: initial encounter Qualified Code(s): S82.841A - Displaced bimalleolar fracture of right lower leg, initial encounter for closed fracture Code(s): S82.841A - Displaced bimalleolar fracture of right lower leg, initial encounter for closed fracture Status: Acute Assessment and Plan: Patient has had several falls. She does recall injuring her right ankle somewhere in the past month. X-ray on 02/10/2020 with comminuted medial and lateral malleolar fractures with Baldwin type B to injury pattern. Dr. Billy consulted and appreciate input. Patient is now S/P ORIF right ankle on 02/13/2020. POD#2. Postoperative care per Orthopedics. (4) Urinary retention: Code(s): R33.9 - Retention of urine, unspecified Status: Acute Assessment and Plan: Urinary catheter placed after retention documented. Completed course of Bactrim. Plan to do Julio trial once more mobile. Hopefully can try ambulating with PT today. (5) Weakness: Code(s): R53.1 - Weakness Status: Acute Assessment and Plan: Probably multifactorial. Continue PT/OT. Plan for SNF at discharge. (6) Dementia: Qualifiers: Dementia behavioral disturbance: without behavioral disturbance Dementia type: unspecified type Qualified Code(s): F03.90 - Unspecified dementia without behavioral disturbance Code(s): F03.90 - Unspecified dementia without behavioral disturbance Status: Chronic Assessment and Plan: Remains pleasant and cooperative. Will continue Namenda. Will monitor. (7) Hypertension: Qualifiers: Hypertension type: essential hypertension Qualified Code(s): I10 - Essential (primary) hypertension Code(s): I10 - Essential (primary) hypertension Status: Chronic Assessment and Plan: Blood pressure reviewed on 02/15/2020 and a bit elevated could be secondary to pain. Continue to monitor on lisinopril. Will adjust treatment as needed. (8) DVT prophylaxis: Code(s): Z29.9 - Encounter for prophylactic measures, unspecified Status: Acute Assessment and Plan: SCDs. Subjective Date/time seen: 02/15/20 1045 Interval history: Ms. Pedersen is a 80yo F admitted for hyponatremia and syncope, found to have bimalleolar fracture of R ankle now POD#2 ORIF. No further episodes of syncope or dizziness. She reports right ankle discomfort but otherwise doing okay. Sitting up in bedside chair. She denies chest pain or shortness of breath. No nausea or vomiting. She tells me she has to go to the bathroom to urinate but I explained to her that she still has a urinary catheter in. Review of Systems Review of Systems: Narrative: Twelve systems were reviewed with pertinent positives and negatives as per HPI. Exam Narrative: Exam Narrative: General: Female sitting up in bedside chair in no acute distress. HEENT: Normocephalic, EOMI, oral mucosa moist. Cardiovascular: Rate and rhythm are regular. Respiratory: C
[2020-02-15 15:22] VITALS: BP 128/49; PULSE 92; RESP 16; TEMP 37.3; O2SAT 97
[2020-02-15 19:58] VITALS: PULSE 92; RESP 16; O2SAT 97
[2020-02-15 22:00] VITALS: BP 118/51; PULSE 89; RESP 18; TEMP 36.6; O2SAT 96
[2020-02-16 06:00] VITALS: BP 102/62; PULSE 99; RESP 18; TEMP 36.8; O2SAT 98
[2020-02-16 06:45] LABS: Hematocrit 25.1 % (37.0-47.0); Hemoglobin 8.5 g/dL (12.0-15.0)
[2020-02-16 07:00] LABS: Blood Urea Nitrogen 5 mg/dL (7-17); Calcium 7.6 mg/dL (8.4-10.2); Carbon Dioxide 19 mmol/L (22-30); Chloride 106 mmol/L (98-107); Estimated CRCL calculation 104 ml/min; Estimated Glomerular Filt Rate > 60; Glucose 103 mg/dL (65-105); Magnesium 1.7 mg/dL (1.6-2.3); Potassium 3.7 mmol/L (3.4-5.0); Sodium 133 mmol/L (137-145)
[2020-02-16] MEDS: SODIUM CHLORIDE 500 MG TABLET PO (08:33)
[2020-02-16] MEDS: DOCUSATE SODIUM 100 MG CAPSULE PO ×2 (08:33→17:20)
[2020-02-16] MEDS: CLOPIDOGREL BISULFATE 75 MG TABLET PO (08:33)
[2020-02-16] MEDS: lisinopriL 20 MG TABLET PO (08:33)
[2020-02-16] MEDS: PANTOPRAZOLE 40 MG TABLET PO (08:33)
[2020-02-16] MEDS: MEMANTINE 10 MG TABLET PO ×2 (08:34→17:20)
[2020-02-16] MEDS: polyethylene glycoL 3350 17 GM POWD.PACK PO (08:34)
--- NOTE | 2020-02-16 12:24 | PM.IMPN ---
Progress Note: A&P Assessment and Plan (1) Syncope: Qualifiers: Syncope type: unspecified Qualified Code(s): R55 - Syncope and collapse Code(s): R55 - Syncope and collapse Status: Acute Assessment and Plan: No further episodes. Probably result of hyponatremia, dehydration. Continue PT/OT. Anticipate going to [facility] at discharge. Will continue to monitor. (2) Hyponatremia: Code(s): E87.1 - Hypo-osmolality and hyponatremia Status: Acute Assessment and Plan: Sodium now up to 133 today. Oral intake better. Oral sodium tablets decreased. Will continue to monitor. (3) Closed bimalleolar fracture of right ankle: Qualifiers: Encounter type: initial encounter Qualified Code(s): S82.841A - Displaced bimalleolar fracture of right lower leg, initial encounter for closed fracture Code(s): S82.841A - Displaced bimalleolar fracture of right lower leg, initial encounter for closed fracture Status: Acute Assessment and Plan: Patient has had several falls. She does recall injuring her right ankle somewhere in the past month. X-ray on 02/10/2020 with comminuted medial and lateral malleolar fractures with Baldwin type B to injury pattern. Dr. Billy consulted and appreciate input. Patient is now S/P ORIF right ankle on 02/13/2020. POD#3. Postoperative care per Orthopedics. (4) Urinary retention: Code(s): R33.9 - Retention of urine, unspecified Status: Acute Assessment and Plan: Urinary catheter placed after retention documented. Completed course of Bactrim. Plan to do Julio trial once more mobile. Hopefully can try ambulating with PT today. (5) Weakness: Code(s): R53.1 - Weakness Status: Acute Assessment and Plan: Probably multifactorial. Continue PT/OT. Plan for SNF at discharge. (6) Dementia: Qualifiers: Dementia type: unspecified type Dementia behavioral disturbance: without behavioral disturbance Qualified Code(s): F03.90 - Unspecified dementia without behavioral disturbance Code(s): F03.90 - Unspecified dementia without behavioral disturbance Status: Chronic Assessment and Plan: Remains pleasant and cooperative. Will continue Namenda. Will monitor. (7) Hypertension: Qualifiers: Hypertension type: essential hypertension Qualified Code(s): I10 - Essential (primary) hypertension Code(s): I10 - Essential (primary) hypertension Status: Chronic Assessment and Plan: Blood pressure reviewed on 02/16/2020 and stable. Continue to monitor on lisinopril. Will adjust treatment as needed. (8) DVT prophylaxis: Code(s): Z29.9 - Encounter for prophylactic measures, unspecified Status: Acute Assessment and Plan: Plavix per Dr Billy Subjective Date/time seen: 02/16/20 1130 Interval history: Ms. Pedersen is a 80yo F admitted for hyponatremia and syncope, found to have bimalleolar fracture of R ankle now POD#3 ORIF. No further episodes of syncope or dizziness. She described back pain with sitting up in the bedside chair this morning and moderate ankle discomfort. She denies any chest pain, shortness of breath, or cough. No nausea or vomiting. Review of Systems Review of Systems: Narrative: Twelve systems were reviewed with pertinent positives and negatives as per HPI. Exam Narrative: Exam Narrative: General: Female sitting up in bedside chair in no acute distress. HEENT: Normocephalic, EOMI, oral mucosa moist. Cardiovascular: Rate and rhythm are regular. Respiratory: Clear to auscultation today, respirations are even and nonlabored, tolerating room air. Abdomen: Soft, non-tender, non-distended, bowel sounds pr
[2020-02-16 14:00] VITALS: BP 132/50; PULSE 90; RESP 18; TEMP 36.3; O2SAT 99
[2020-02-16 14:05] VITALS: BP 142/66
[2020-02-16 14:10] VITALS: BP 149/76
[2020-02-16] MEDS: MAGNESIUM SULF 2 GM/WATER 50ML 2 GM/50 ML BAG IVPB (14:24)
[2020-02-16 22:00] VITALS: BP 138/41; PULSE 91; RESP 18; TEMP 36.6; O2SAT 100
[2020-02-16] MEDS: ACETAMINOPHEN 500 MG TABLET PO (22:21)
[2020-02-17 06:00] VITALS: BP 144/62; PULSE 83; RESP 16; TEMP 36.6; O2SAT 98
[2020-02-17 06:25] LABS: Hemoglobin 8.2 g/dL (12.0-15.0); Mean Corpuscular HGB Conc 32.8 g/dl (32-36); Mean Corpuscular Hemoglobin 32.2 pg (26-34); Mean Platelet Volume 9.3 fl (7.4-10.4); Platelet Count Result 244 k/mm3 (150-375); Red Blood Count 2.55 M/mm3 (4.2-5.4); Red Cell Distribution Width 13.7 % (11.5-14.5); White Blood Count 6.7 K/mm3 (4.5-10.0)
[2020-02-17 06:42] LABS: Blood Urea Nitrogen 5 mg/dL (7-17); Calcium 8.1 mg/dL (8.4-10.2); Carbon Dioxide 26 mmol/L (22-30); Chloride 107 mmol/L (98-107); Estimated CRCL calculation 81 ml/min; Estimated Glomerular Filt Rate > 60; Glucose 98 mg/dL (65-105); Magnesium 2.1 mg/dL (1.6-2.3); Potassium 3.6 mmol/L (3.4-5.0); Sodium 135 mmol/L (137-145)
--- NOTE | 2020-02-17 08:49 | PM.PNORT ---
Progress Note: A&P Assessment and Plan (1) Closed bimalleolar fracture of right ankle: Qualifiers: Encounter type: initial encounter Qualified Code(s): S82.841A - Displaced bimalleolar fracture of right lower leg, initial encounter for closed fracture Code(s): S82.841A - Displaced bimalleolar fracture of right lower leg, initial encounter for closed fracture Status: Acute Assessment and Plan: 80-year-old female four days out from ORIF right ankle and regarding the ankle doing well. Discharge planning is under way. I will need to see her and approximately one week for suture removal. This will be in February 26 at my [place] office. Her weight-bearing status will not change. I anticipate her being nonweightbearing right leg for a minimum of eight weeks. I will continue to follow while she is in the hospital. Subjective Subjective Date/Time Seen: 02/17/20 08:49 Post Op day: 4 Principal diagnosis: Status post ORIF right ankle Interval history: 80-year-old female postop day four status post ORIF right ankle. Complaining of very little pain. Currently using only Tylenol for pain control and taking it infrequently. Denies any numbness in her right leg. Denies any calf pain in either leg Review of Systems Constitutional: Constitutional: Denies chills and Denies fever(s) Eyes: Eyes: Reports no additional eye complaints Gastrointestinal: Gastrointestinal: Denies abdominal pain Exam Const: General: cooperative, no acute distress and alert Nutritional Appearance: other Orientation/consciousness: oriented to person HENMT: Head: normal to inspection Ears: hearing grossly normal bilaterally Face and sinus: face symmetric Mouth: Yes moist mucous membranes Chest: Chest palpation & inspection: normal inspection of the chest Resp: Effort & Inspection: normal respiratory effort and able to speak in complete sentences GI: Inspection: other (Belly nondistended) Skin: General skin exam: normal color Rashes: no rashes Neuro: Speech: normal speech Sensory Exam: normal sensation Extrem: General: normal to inspection and other Other: Exam of the right lower extremity reveals a healing incision over the distal fibula.. Little swelling and bruising. Right lower leg calf nontender. Neurovascular status grossly intact right lower extremity. Left lower extremity exam nonfocal. Psych: Appearance: grossly normal Mental Status: mental status grossly normal Radiology Reports: Comments: EXAMINATION: XR surgery orthopedic DATE: 02/13/2020 13:36 INDICATION: ORIF right ankle fracture TECHNIQUE: 2 fluoroscopic spot images of the right ankle were obtained in frontal and lateral projections during procedure performed by Dr. Billy. Radiologist was not present for the imaging or procedure. The amount of fluoroscopy time used during this procedure was 0.7 minutes. COMPARISON: 02/10/2020 FINDINGS: Interval reduction of the previous noted right ankle fracture subluxation. The lateral malleolar fractures fixed with a lateral plate and screws and is in near-anatomic alignment. The medial malleolus fracture remains unfixed has been reduced to near-anatomic alignment with a couple millimeter residual distraction. There is increased density projecting over the lateral aspect of the tibial plafond and there appears be some depression of the lateral aspect of the articular surface suggesting a mildly impacted, nondisplaced posterior malleolar fracture which is also without internal fixation. IMPRESSION: 1. Near-anatomic alignment post open reduction internal fixation of a trimalleolar fracture of the distal right tibia and fibula. Ankle X-Ray 02/10/20 Thoracic Spine X-Ray 02/16/20 Lumbar Spine X-Ray 02/16/20 Objective Data Vital Signs Vital Signs: Vital Signs - 24 hr 02/16/20 14:00 02/16/20 14:05 02/16/20 14:10 Temperature 97.4 F L Pulse Rate 90 Respiratory Rate 18 Blood Pr
[2020-02-17] MEDS: PANTOPRAZOLE 40 MG TABLET PO (08:56)
[2020-02-17] MEDS: CLOPIDOGREL BISULFATE 75 MG TABLET PO (08:56)
[2020-02-17] MEDS: lisinopriL 20 MG TABLET PO (08:56)
[2020-02-17] MEDS: SODIUM CHLORIDE 500 MG TABLET PO (08:56)
[2020-02-17] MEDS: DOCUSATE SODIUM 100 MG CAPSULE PO ×2 (08:56→17:11)
[2020-02-17] MEDS: MEMANTINE 10 MG TABLET PO ×2 (08:58→17:11)
[2020-02-17] MEDS: polyethylene glycoL 3350 17 GM POWD.PACK PO (09:00)
[2020-02-17] MEDS: ACETAMINOPHEN 500 MG TABLET 1000 MG PO ×3 (09:25→19:09)
--- NOTE | 2020-02-17 11:54 | PM.IMPN ---
Progress Note: A&P Assessment and Plan (1) Syncope: Qualifiers: Syncope type: unspecified Qualified Code(s): R55 - Syncope and collapse Code(s): R55 - Syncope and collapse Status: Acute Assessment and Plan: No further episodes. Probably result of hyponatremia, dehydration. Continue PT/OT. Will continue to monitor. Medically stable for discharge, [facility] does not have a bed today. Anticipate discharge to [facility] tomorrow. (2) Hyponatremia: Code(s): E87.1 - Hypo-osmolality and hyponatremia Status: Acute Assessment and Plan: Sodium now up to 135 today. Oral intake better. Will stop oral sodium tablets. Will continue to monitor. (3) Closed bimalleolar fracture of right ankle: Qualifiers: Encounter type: initial encounter Qualified Code(s): S82.841A - Displaced bimalleolar fracture of right lower leg, initial encounter for closed fracture Code(s): S82.841A - Displaced bimalleolar fracture of right lower leg, initial encounter for closed fracture Status: Acute Assessment and Plan: Patient has had several falls. She does recall injuring her right ankle somewhere in the past month. X-ray on 02/10/2020 with comminuted medial and lateral malleolar fractures with Baldwin type B to injury pattern. Dr. Billy consulted and appreciate input. Patient is now S/P ORIF right ankle on 02/13/2020. POD#4. Postoperative care per Orthopedics. Discussed with Dr Billy today, she is good for discharge from his standpoint. (4) Urinary retention: Code(s): R33.9 - Retention of urine, unspecified Status: Acute Assessment and Plan: Urinary catheter placed after retention documented. Completed course of Bactrim. Mobility is still quite poor postoperatively with her NWB on the R foot, may have to dc with Julio. (5) Weakness: Code(s): R53.1 - Weakness Status: Acute Assessment and Plan: Probably multifactorial. Continue PT/OT. Plan for discharge to SNF tomorrow. (6) Dementia: Qualifiers: Dementia behavioral disturbance: without behavioral disturbance Dementia type: unspecified type Qualified Code(s): F03.90 - Unspecified dementia without behavioral disturbance Code(s): F03.90 - Unspecified dementia without behavioral disturbance Status: Chronic Assessment and Plan: Remains pleasant and cooperative. Will continue Namenda. Will monitor. (7) Hypertension: Qualifiers: Hypertension type: essential hypertension Qualified Code(s): I10 - Essential (primary) hypertension Code(s): I10 - Essential (primary) hypertension Status: Chronic Assessment and Plan: Blood pressure reviewed on 02/17/2020 and stable. Continue to monitor on lisinopril. Will adjust treatment as needed. Subjective Date/time seen: 02/17/20 1045 Interval history: Ms. Pedersen is a 80yo F admitted for hyponatremia and syncope, found to have bimalleolar fracture of R ankle now POD#4 ORIF. No further episodes of syncope or dizziness. She notes her pain is tolerable, using only Tylenol currently. She denies any chest pain, shortness of breath, or cough. No nausea or vomiting. Review of Systems Review of Systems: Narrative: Twelve systems were reviewed with pertinent positives and negatives as per HPI. Exam Narrative: Exam Narrative: General: Female resting comfortably in bed in no acute distress. HEENT: Normocephalic, EOMI, oral mucosa moist. Cardiovascular: Rate and rhythm are regular. Respiratory: Clear to auscultation NICO, respirations are even and nonlabored, tolerating room air. Abdomen: Soft, non-tender, non-distended, bowel sounds present. Extremities: Postop splint to right l
[2020-02-17 12:12] VITALS: BP 145/50; BP 153/45
[2020-02-17 12:13] VITALS: BP 154/93
[2020-02-17 14:00] VITALS: BP 148/48; PULSE 82; RESP 20; TEMP 36.3; O2SAT 100
[2020-02-17 22:00] VITALS: BP 120/87; PULSE 69; RESP 18; TEMP 36.4; O2SAT 98
[2020-02-18 06:00] VITALS: BP 142/50; PULSE 78; RESP 18; TEMP 36.2; O2SAT 99
[2020-02-18 06:00] LABS: Hematocrit 26.7 % (37.0-47.0); Hemoglobin 8.3 g/dL (12.0-15.0)
[2020-02-18 06:14] LABS: Blood Urea Nitrogen 7 mg/dL (7-17); Calcium 8.3 mg/dL (8.4-10.2); Carbon Dioxide 26 mmol/L (22-30); Chloride 108 mmol/L (98-107); Estimated CRCL calculation 81 ml/min; Estimated Glomerular Filt Rate > 60; Glucose 93 mg/dL (65-105); Potassium 3.6 mmol/L (3.4-5.0); Sodium 136 mmol/L (137-145)
[2020-02-18] MEDS: CLOPIDOGREL BISULFATE 75 MG TABLET PO (09:24)
[2020-02-18] MEDS: PANTOPRAZOLE 40 MG TABLET PO (09:24)
[2020-02-18] MEDS: lisinopriL 20 MG TABLET PO (09:24)
[2020-02-18] MEDS: DOCUSATE SODIUM 100 MG CAPSULE PO (09:24)
[2020-02-18] MEDS: MEMANTINE 10 MG TABLET PO (09:25)
[2020-02-18] MEDS: polyethylene glycoL 3350 17 GM POWD.PACK PO (09:25)
[2020-02-18] MEDS: ACETAMINOPHEN 500 MG TABLET 1000 MG PO (09:28)
[2020-02-18 14:00] VITALS: BP 124/61; PULSE 83; RESP 16; TEMP 37; O2SAT 100
--- NOTE | 2020-02-18 16:07 | PCDIET ---
Nutrition Follow-Up Complete: Inadequate Oral Intake as related to Dementia as evidenced by poor po intake reported/weight loss of 10 ibs in 4 months. Adequate Intake of at least 50% of meals/supplements Goal:not met, continue goal Pt current nutrition is Regular + Compact BID. Nutrition recommendation: Agree Last recorded weight is 67.5 kg (need new wt) Bowel Motility: BM+ yesterday Labs Reviewed: Na 136 Meds Noted:colace, miralax, protonix, lisinopril Additional Notes: Pt with average intake of 26%. No new wt to assess for wt loss. Recommend daily weights due to poor intake. Recommend assistance with feedings. Diet and supplements appropriate at this time. Plans for possible d/c today. We will continue to monitor PO intake and wt every three days.
--- NOTE | 2020-02-18 17:50 | PM.DS ---
DS: Admitting Diagnosis Admitting Diagnosis Admitting Diagnosis: Hypo-osmolality and hyponatremia DS: Discharge Diagnosis Discharge Diagnosis (1) Syncope: Qualifiers: Syncope type: unspecified Qualified Code(s): R55 - Syncope and collapse Code(s): R55 - Syncope and collapse Status: Acute Assessment and Plan: Date of Service 02/18/20: Ms. Pedersen is a 80yo F with history of hypertension and dementia who presented to the ED from home for evaluation after a syncopal episode while using bedside commode. Family was present and lowered her to the floor, no head injury reported. She has had multiple falls recently. Sodium was as low as 125 on arrival. It was felt that her syncopal episode may have been vasovagal in nature, although dehydration and hyponatremia may have contributed. She complained of right ankle pain so imaging was obtained, which revealed comminuted medial and lateral malleolar fractures. Orthopedic surgery was consulted and she was evaluated by Dr Billy. She underwent ORIF right lateral malleolus by Dr Billy 02/13/20 with EBL 300mL, hemovac drain was placed and subsequently removed prior to discharge. Urinary flowers catheter was initiated due to immobility and urinary retention. Given her nonweightbearing status to R leg, she was still unable to take any steps at discharge, thus her urinary catheter remained intact at discharge and voiding trial should be attempted at the alf once she is more mobile. She was treated with IV hydration and sodium chloride tablets; sodium improved to 136 on day of discharge. She was hemodynamically stable for discharge to [facility] 02/18/20 with follow up instructions and repeat XR from Dr Billy. She had no further episodes of dizziness or syncope. No further episodes. Probably result of hyponatremia, dehydration. (2) Hyponatremia: Code(s): E87.1 - Hypo-osmolality and hyponatremia Status: Acute Assessment and Plan: Initially treated with IV hydration and sodium tablets. Sodium 125 on arrival and improved to 136 day of discharge. (3) Closed bimalleolar fracture of right ankle: Qualifiers: Encounter type: initial encounter Qualified Code(s): S82.841A - Displaced bimalleolar fracture of right lower leg, initial encounter for closed fracture Code(s): S82.841A - Displaced bimalleolar fracture of right lower leg, initial encounter for closed fracture Status: Acute Assessment and Plan: Patient has had several falls. She does recall injuring her right ankle somewhere in the past month. X-ray on 02/10/2020 with comminuted medial and lateral malleolar fractures with Baldwin type B to injury pattern. Dr. Billy consulted and appreciate input. Patient is now S/P ORIF right ankle on 02/13/2020. Postoperative care per Orthopedics. (4) Urinary retention: Code(s): R33.9 - Retention of urine, unspecified Status: Acute Assessment and Plan: Urinary catheter placed after retention documented. Completed course of Bactrim. Mobility is still quite poor postoperatively with her NWB on the R foot. DC with flowers and NH should attempted voiding trial later in the week. (5) Weakness: Code(s): R53.1 - Weakness Status: Acute Assessment and Plan: Probably multifactorial. Continue PT/OT at SNF. (6) Dementia: Qualifiers: Dementia type: unspecified type Dementia behavioral disturbance: without behavioral disturbance Qualified Code(s): F03.90 - Unspecified dementia without behavioral disturbance Code(s): F03.90 - Unspecified dementia without behavioral disturbance Status: Chronic Assessment and Plan: Remains calm and cooperative, affect flat. She was maintained on her home [place] without iss
--- NOTE | 2020-02-19 06:18 | P.CDI_ITS ---
CDI Query Clarification Request - Add anemia to problem list. Baseline Hgb appears around 10. Suspect part of her drop in Hgb was dilutional/hemoconcentrated on arrival then received fluids, now postoperative documented. - 02/08 H&H 13.3/39.1, 02/09 H&H 12/34.7, 02/17 H&H 8.3/26.7 - EBL during OR was 300cc Please further clarify postoperative anemia: * Acute blood loss anemia * Acute anemia other cause * Other * Unable to determine
== END 2020-02-18 16:26 | DRG 493 ==
LOC: ANHED 21:58 → ANH3MEDSUR 22:09
PROVIDERS: Emergency Medicine; Hospitalist; Internal Medicine; Orthopaedic Surgery; Physician Assistant; Admitting Provider Internal Medicine; Emergency Provider Emergency Medicine; Visit Provider Internal Medicine
PROC: 0QSJ04Z Reposition Right Fibula with Internal Fixation Device, Open Approach (ICD-10-PCS; principal; 2020-02-13 12:00)
DX: S82.841A Displaced bimalleolar fracture of right lower leg, initial encounter for closed fracture (principal); E87.1 Hypo-osmolality and hyponatremia; E86.0 Dehydration; R33.9 Retention of urine, unspecified; R19.7 Diarrhea, unspecified; F03.90 Unspecified dementia, unspecified severity, without behavioral disturbance, psychotic disturbance, mood disturbance, and anxiety; I10 Essential (primary) hypertension; W19.XXXA Unspecified fall, initial encounter; R29.6 Repeated falls; Z91.81 History of falling; R53.1 Weakness
CPT/HCPCS: 36415; 51701; 72072; 72100; 73610; 80048; 81001; 83735; 85014; 85018; 85025; 85027; 93005; 96360; 96361; 97110; 97162; 97164; 97165; 97168; 97530; 97535; 99285; A9270; C1713; G0378; J0690; J2370; J2405; J2704; J3010; J3475; J7030; J7120